=== PATIENT | male | born 1955 | race Caucasian/White ===

== ENCOUNTER → 2020-03-02 11:25 | Outpatient (BNVA) | payer BC, SELFPAY | PROVIDERS: Family Provider Internal Medicine; PCP Family Medicine; Visit Provider Family Medicine | DX: I10 Essential (primary) hypertension (principal); Z12.5 Encounter for screening for malignant neoplasm of prostate; M25.512 Pain in left shoulder; G89.29 Other chronic pain; R35.1 Nocturia | CPT/HCPCS: 80053; 80061; 82044; 85025; G0103 ==

== ENCOUNTER → 2020-06-03 14:03 | Outpatient (BNVA) | payer BC, SELFPAY | PROVIDERS: Family Provider Internal Medicine; PCP Family Medicine; Visit Provider Family Medicine | DX: E78.5 Hyperlipidemia, unspecified (principal) | CPT/HCPCS: 80053; 80061 ==

== ENCOUNTER 2020-08-05 07:14 | Outpatient (CLI) | payer BC, SELFPAY ==
[2020-08-05 08:05] VITALS: BMI 26.4
--- NOTE | 2020-08-05 08:06 | NMCV_ITS ---
NM vee perf SPECT r/s* [id number] Daniel Quinteros Age: 64 Gender: M : 1955 Exam Date: 08/05/2020 08:06 Ordering Phys: Anna Man Technologist: CHETNA Kaur Exam Location: [facility] Indications: SOB STRESS TEST Please see separate stress test report in [facility] for full findings IMAGE PROTOCOL Rest/Stress 1 Lexiscan Day Radiopharmaceutical Dose (mCi) Administration Site Administered by Rest: Tc-99m 10.4 IV CHETNA Kaur Sestamibi Stress:Tc-99m 32.9 IV Kym Sauceda, CHETNA Sestamibi Rest: 05-Aug-2020 60 Discovery 630 Stress: 05-Aug-2020 30 Discovery 630 0.4mg Lexiscan. Images obtained in supine and prone position. SPECT RESULTS Technical Quality: Excellent Raw Data Analysis: Normal Image Corrections: No attenuation or motion correction applied Summed Stress Score: 9 Summed Rest Score: 3 Summed Difference Score: 6 PERFUSION FINDINGS There is a large in size, severe in intensity reversible defect in basal to apical inferior wall. This is consistent with ischemia and RCA territory. FUNCTIONAL RESULTS (calculated via Gated SPECT) Stress Image LV EF (%): 73 Stress EDV (mL):99 TID: 1 Stress ESV (mL):27 FUNCTIONAL FINDINGS: LV systolic function is normal with EF of 73%. IMPRESSIONS 1. Abnormal myocardial perfusion imaging with large in size, severe in intensity reversible defect in inferior wall. This represents ischemia in the RCA territory. 2. Normal LV systolic function with EF of 73%. Juanito Suarez MD (Electronically Signed) Final Date: 07 August 2020 17:04 S
--- NOTE | 2020-08-05 08:06 | ECG_ITS ---
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 Interpretive Statements NAME OF STUDY: LEXISCAN SESTAMIBI STRESS TEST INDICATION: [Chest Pain, ] Procedure: At the baseline, the blood pressure was 137/75 mmHg, heart rate of 52 bpm. The electrocardiogram showed normal bradycardia rhythm with incomplete right bundle branch block with normal ST and T's. The Lexiscan was infused over a period of 20 seconds. A total of 0.4 mg of Lexiscan was infused. The stress phase was continued for a total of 5 minutes. Heart rate at the end of stress phase was 60 bpm, with blood pressure 129/80 mmHg. The EKG at the peak infusion revealed sinus rhythm with no significant ST T wave changes. Sestamibi was injected 20 seconds after the Lexiscan was infused. Blood pressure at the end of recovery phase was 121/72 mmHg, with a heart rate of 65 bpm. Conclusion: 1. Normal EKG response to Lexiscan infusion. 2. No Lexiscan induced chest pain or cardiac arrhythmia. 3. Normal blood pressure and heart rate response. 4. Sestamibi/sestamibi perfusion scan pending; see separate report. Electronically Signed On 08-08-2020 9:27:42 JIG AND FIXTURE REPAIRER by Juanito Suarez M.D. [email or web address]
[2020-08-05] MEDS: regadenoson 0.4 Mg/5 ml Syringe IVP (09:55)
[2020-08-05 09:57] VITALS: BP 130/76; PULSE 68
== END 2020-08-05 07:15 | disposition home or self-care (01) ==
LOC: CDL 07:17
PROVIDERS: PCP Family Medicine; Visit Provider Nurse Practitioner Family
DX: R07.9 Chest pain, unspecified (principal); R06.02 Shortness of breath
CPT/HCPCS: 78452; 93017; A9500; J2785

== ENCOUNTER → 2020-08-12 12:39 | Outpatient (BNVA) | payer BC, SELFPAY | PROVIDERS: PCP Family Medicine | DX: Z20.828 Contact with and (suspected) exposure to other viral communicable diseases (principal); Z01.812 Encounter for preprocedural laboratory examination | CPT/HCPCS: 87635 ==

== ENCOUNTER 2020-08-16 07:57 | Day surgery (SDC) | payer BC, SELFPAY ==
[2020-08-12 12:34] LABS: Basophils # 0.1 10^3/uL (0.0-0.1); Basophils % 0.9 %; Eosinophils # 0.2 10^3/uL (0.0-0.8); Eosinophils % 2.7 %; Hematocrit 47.9 % (42.0-52.0); Hemoglobin 16.4 g/dL (11.7-16.6); Lymphocytes # 1.8 10^3/uL (0.8-4.8); Lymphocytes % 27.5 %; Mean Corpuscular HGB Conc 34.2 g/dL (30.0-36.0); Mean Corpuscular Hemoglobin 33.6 pg (28.0-34.0); Mean Corpuscular Volume 98.2 fL (80-94); Mean Platelet Volume 8.8 fL (7.4-10.4); Monocytes # 0.7 10^3/uL (0.2-0.9); Monocytes % 11.6 %; Neutrophils # 3.64 10^3/uL (1.8-7.7); Nucleated Red Blood Cells % 0 %; Platelet Count 193 10^3/cmm (130-400); Red Blood Count 4.88 10^6/uL (4.1-5.3); Red Cell Distribution Width 11.7 % (12.1-15.1); White Blood Count 6.4 10^3/uL (4.0-10.0)
[2020-08-12 12:40] LABS: INR 0.91 (0.8-1.2)
[2020-08-12 12:52] LABS: Anion Gap 12.4 (5-19); Blood Urea Nitrogen 10 mg/dL (8-23); Calcium 9.8 mg/dL (8.5-10.5); Carbon Dioxide 30 mmol/L (22-29); Chloride 103 mmol/L (98-107); Glucose 120 mg/dL (65-115); Osmolality Calculated 292 mOsm/kg (285-295); Potassium 4.4 mmol/L (3.5-5.1); Sodium 141 mmol/L (136-145)
[2020-08-16] VITALS (27 sets, daily range): BP systolic 90–142; BP diastolic 68–91; PULSE 51–67; RESP 11–28; TEMP 36.8; O2SAT 93–99; BMI 28.5
--- NOTE | 2020-08-16 08:00 | XACV_ITS ---
Ht: 185 cm Wt: 98 kg BSA: 2.26 m2 Gender: Male : 1955 Exam Priority: Routine Procedure(s): Procedure Description: Diagnostic procedure Procedure Description: Left Heart Catheterization Procedure Description: Left ventriculography Procedure Description: Coronary Angiography Procedure Description: Pressure Wire Diagnostic Cath Status: Elective Diagnostic Findings * LAD has 0% stenosis. * CX has 0% stenosis. * Left Main Coronary Artery: Moderate 60% stenosis, LASHAWN: 3 flow, FFR performed: ratio is 0.68. * mRCA to dRCA: Severe 100% stenosis, LASHAWN: 0 flow. * dCIRC to CIRC AV collateralization. * Coronary angiography shows right dominance. PCI Status: Elective Conclusions 1. 1. Left main has 60% distal stenosis significant by IFR and FFR 0.8 and 0.68 respectively2. LAD has patent proximal stent without significant stenosis3. Left circumflex is moderate size and caliber vessel without significant stenosis4. RCA is chronically occluded with previously placed occluded mid to distal stents. Distal portion of the RCA fills retrogradely from left to right collaterals.. 2. Left ventricle ejection fraction is normal 65%, 3. no 4. significant 5. pullback gradient noted across the aortic valve.. 6. There is severe coronary artery disease with two vessel disease. 7. All higuera are normal. 8. Normal left ventricular systolic function. Ejection fraction of 65%. 9. Indication for left heart cath 10. : 11. Worsening of shortness of breath 12. chest pain 13. , abnormal stress test 14. in a patient with prior history of 15. LAD and RCA stent 16. and history of ACS . Recommendations * 1-Return to CSU for close monitoring and routine [facility] care 2-Continue to optimize medicine 3-Statin with LDL goal of 70 mg/dl, aspirin 81 mg p.o. daily for life long 4-CT surgery consults for CABG 5-Follow up with Dr. Thomas in four weeks and establish care with primary care physician . Diagnostic RX Recommendation: CABG Ventriculography Ejection Fraction: 65.0 % Pressures Phase:Rest AO : 86 / 62 ( 73 ) @ 3:54:00 AM 95 / 49 ( 68 ) @ 4:23:00 AM 88 / 42 ( 62 ) @ 4:23:00 AM LV : 110 / -3 / @ 4:21:00 AM 92 / -12 / @ 4:22:00 AM 95 / -11 / @ 4:23:00 AM Valves Phase:DefaultPhase AV : 0.0 @ 10:29:21 AM AV Mean Gradient: 0.0 @ 10:29:21 AM Clinical Evaluation EBL: 5mL-10mL Procedural Details Procedure Consent Obtained. Current Diagnosis : Chest Pain. Pre-Procedure Time Out. Identified patient by full name and date of as verbalized by the patient/guarantor. Does the consent match the physician's order: Yes. Accurate & Complete Informed Consent: Yes. Inpatient/Outpatient History & Physical on Chart: Yes. If H&P is completed, is and addenduem needed: Yes; If yes, is the addendum complete: N/A. Visualize and Verify Site with Patient/Guarantor: N/A. Relevant Radiology Images available: Yes. Pre-op teaching completed and patient verbalized understanding. The risks, benefits, and alternatives of sedation and/or procedure were discussed by physician. The patient agrees to continue. Procedure started. [facility] Clinical Fraility Score: 3: Managing Well. 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 Chest Pain Symptom Assessment: Typical Angina Symptoms. Correct patient, site and procedure confirmed by cath team. Current diagnosis: Chest Pain. PERRLA. Strong, equal hand pan operator bilaterally. Lungs clear x 5 lobes. IV Site on Arrival: 20 gauge in the right forearm. IV Fluids: 0.9% NaCl at KVO. 0 mL infused prior to analytical lab analyst. Pre Procedural Pulses: bilateral dorsalis pedis was 1+. Pre Procedural Pulses: bilateral posterior tibial was 2+. Pre Procedural Pulses: bilateral radial was 3+. Oxygen started at 2liters/min via nasal canula. right groin was prepped with chloroprep then draped in the usual sterile fashion. right radial was prepped with chloroprep then draped in the usual sterile fashion. Physician notified. Baseline sample Acquired. HR: 54 BPM. Patient's family unavailable. Dr. Thomas will call his after the procedure. Physician arrived. Physician scrubbed in. Immediate Pre-Procedure Time Out. Correct Patient: Yes; Correct Procedure: Yes; Correct Site: Yes; Correct Patient Position: Yes; Correct Supplies: Yes; Dried Flammable Prep: Yes; Blood Products Available: N/A;. Lidocaine 1% infiltrated to the right radial. Arterial access obtained. A 5 canadian TIG catheter in over wire. Multiple views taken of left coronary artery. Catheter redirected to the RCA. Multiple views taken of right coronary artery. Catheter out over the wire. 6 canadian XB 3.5 guide catheter was inserted over the wire. RT Lance (July) in to scrub in addition to RT Home. Albertina Khan RN, PRECISION ASSEMBLY INSPECTOR in to monitor for RT Lance (July). IVUS unavailable. An IFR value of 0.8 was obtained for a lesion located at LMCA. An FFR value of 0.64 was obtained for a lesion located at LMCA. Guide catheter out over the wire. A 5 canadian Angled Pig catheter in over wire. Medication's Wasted: Heparin = 4000 units. Medication's Wasted: Lidocaine 1% = 18 mL. Medication's Wasted: Nitro = 49.8 mg. Medication's Wasted: Adenosine = 62 mg. Total IV fluids: 100 mL. EDP Sample taken: LV 110/-4,8; HR: 56 BPM; SpO2: 98%. LV gram performed in GALVIN @ 10 mL/second for a total of 30 mL. EDP Sample taken: LV 92/-13,3; HR: 66 BPM; SpO2: 97%. Pullback taken: LV 95/-12,4; AO 95/49(68); Mean: 0mmHg, Peak to Peak: 0mmHg, SEP: 3sec/min; HR: 58 BPM; SpO2: 97%. Catheter removed over the exchange wire. Physician scrubbed out. TR band placed. Hemostasis obtained. Post Procedure: Pulses reassessed and unchanged. PERRLA. Strong, equal hand pan operator bilaterally. No VTE prophylaxis required. Post-op diagnosis: Multivessel CAD. Complications: None. Estimated blood loss: 5mL-10mL. A TR Band was successful obtaining hemostatsis at the Right Radial artery insertion site. Procedure completed. Patient transferred by bed to 1st floor. Vital chart was stopped. Access Site Site: Right Radial artery Sheath Size: 6 Fr Hemostasis Method: TR Band Hemostasis Success: Successful Procedure Medications Start: 9:26 AM Stop: 9:26 AM Medication: Fentanyl Amount: 50 mcg Route: I.V. Start: 9:26 AM Stop: 9:26 AM Medication: Versed Amount: 1 mg Start: 9:46 AM Stop: 9:46 AM Medication: Versed Amount: 1 mg Start: 9:46 AM Stop: 9:46 AM Medication: Nitrogylcerin Amount: 200 mcg Route: I.A. Start: 9:48 AM Stop: 9:48 AM Medication: Heparin Amount: 5000 units Route: I.V. Start: 10:01 AM Stop: 10:01 AM Medication: Heparin Amount: 2000 units Route: I.V. Start: 10:12 AM Stop: 10:12 AM Medication: Adenosine (Adenocard) Amount: 823 ml/hr Route: I.V. bolus Start: 10:14 AM Stop: 10:14 AM Medication: Fentanyl Amount: 25 mcg Route: I.V. Start: 10:17 AM Stop: 10:17 AM Medication: Fentanyl Amount: 25 mcg Route: I.V. I, the attending physician, have reviewed and verified all procedure medications. Yes, all medications given per verbal order History/Risk Factors Hypertension: Yes Dyslipidemia: Yes Peripheral Arterial Disease (PAD): Yes Myocardial Infarction (MO): No Obesity: No Renal Disease: No Prior Interventions PCI: Yes CABG: No Valve Surgery: No Date of PCI: 02/04/2014 Report Signatures Finalized by Zuleika Thomas MD on 08/19/2020 01:39 PM
[2020-08-16] MEDS: diphenhydrAMINE 50 mg Capsule PO (08:10)
--- NOTE | 2020-08-16 09:24 | P.HP_ITS ---
Providers/Chief Complaint Primary Care Provider: Lise Domínguez DO Chief Complaint: UNABLE TO SEE DX History of Present Illness Daniel Quinteros is a 64 year old male past medical history significant for coronary artery disease status post drug-eluting stent to RCA and LAD in 2013 on optimal medical management was struggling with worsening of shortness of breath palpitation and chest pain requiring nitroglycerin. Patient underwent stress test which showed reversibility suggestive of ischemia in the inferior wall. It is the reason patient is here today for coronary angiogram/left heart cath and PCI if needed. His other comorbidities are peripheral vascular disease hyperlipidemia hypertension. Patient has been explained all risk benefit and alternative for the procedure. Patient has been explained by myself the risk of bleeding arrhythmia stroke emergent bypass and worse case scenario . He understand all risk and benefits and would like to proceed with it. He is compliant with the medicine. LV systolic function is normal with EF of 73%. IMPRESSIONS 1. Abnormal myocardial perfusion imaging with large in size, severe in intensity reversible defect in inferior wall. This represents ischemia in the RCA territory. 2. Normal LV systolic function with EF of 73%. Juanito Suarez MD (Electronically Signed) Final Date: 07 August 2020 Medications/Allergies Home Medications Medication Instructions Recorded Confirmed Last Taken Type meloxicam 15 mg tablet 15 mg PO DAILY #30 tab 03/02/20 08/16/20 08/16/20 07:00 Rx cholecalciferol (vitamin D3) 25 25 mcg PO DAILY 04/12/20 08/16/20 08/15/20 08:00 History mcg (1,000 unit) capsule cyanocobalamin (vitamin B-12) 1,000 mcg PO DAILY 04/12/20 08/16/20 08/15/20 08:00 History 1,000 mcg capsule omega-3 fatty acids 1,000 mg 1,000 mg PO DAILY 04/12/20 08/16/20 08/15/20 08:00 History capsule thiamine HCl (vitamin B1) 100 mg 100 mg PO DAILY 04/12/20 08/16/20 08/15/20 08:00 History tablet gabapentin 800 mg tablet See Rx Instructions PO TID 30 Days 06/03/20 08/16/20 08/16/20 07:00 Rx #105 tab metoprolol tartrate 25 mg tablet 12.5 mg PO BID #60 tab 06/03/20 08/16/20 08/16/20 07:00 Rx simvastatin 40 mg tablet 40 mg PO DAILY #90 tab 07/06/20 08/16/20 08/15/20 20:00 Rx nitroglycerin 0.4 mg sublingual 0.4 mg SUBLINGUAL Q5M PRN #14 tab 08/12/20 08/15/20 Unknown Rx tablet amlodipine 5 mg PO QPM 08/15/20 08/16/20 08/15/20 20:00 History pantoprazole [Protonix] 40 mg PO EVERY OTHER DAY 08/15/20 08/16/20 08/15/20 20: 00 History trazodone 75 mg PO QPM 08/15/20 08/16/20 08/15/20 20:00 History Allergies Allergy/AdvReac Type Severity Reaction Status Date / Time hydrocodone AdvReac Mild unknown Verified 06/13/20 12:43 oxycodone [From Percocet] AdvReac Mild unknown Verified 06/13/20 12:43 PFSH Acute PFSH: Medical History (Updated 08/16/20 @ 09:29 by Zuleika Thomas MD) Benign essential HTN Coronary artery disease involving [place] coronary artery Dyslipidemia Paroxysmal tachycardia PVD (peripheral vascular disease) Surgical History History of back surgery History of facial fracture repair History of hand surgery History of left hip replacement Presence of stent in LAD coronary artery 02/04/2014 S/P right coronary artery (RCA) stent placement 02/04/2014 Family History Other CAD (coronary artery disease) Lung disease Social History Smoking and tobacco status: current every day smoker smokeless tobacco Alcohol intake: never Vitals/I&O/Wt Last Vital Signs Temp 98.3 F 08/16/20 08:23 Pulse 67 08/16/20 08:23 Resp 18 08/16/20 08:23 BP 116/78 08/16/20 08:23 Pulse Ox 96 08/16/20 08:23 Weight last 48 hrs Weight 216 lb Physical Exam Narrative: EXAM NARRATIVE: GENERAL: Patient is alert, awake and oriented x3. NECK: No jugular vein distension. HEENT: No cyanosis. No icterus. No pallor. HEART: Regular S1 and S2. No murmur, rub or gallop. LUNGS: Clear to auscultate bilaterally. ABDOMEN: Soft, nontender and nondistended. Positive bowel sounds. No guarding, rebound or tenderness. CENTRAL NERVOUS SYSTEM: Grossly nonfocal. EXTREMITIES: Lower extremities without edema bilaterally. Data : 08/12/20 12:22 08/12/20 12:22 A&P Assessment and plan (1) Abnormal stress test: Worsening of chest pain shortness of breath in a patient with prior history of stents in RCA and LAD despite of optimization of medicine and regular use of nitroglycerin suggestive of angina. Patient underwent stress test which turns out to be abnormal in the inferior region. It is the reason we will proceed with coronary angiogram and PCI if needed. As above patient has been consented for all risk benefit and alternative for the procedure. He would like to proceed with it. Status: Acute (2) PVD (peripheral vascular disease): Currently denies any claudication continue medical management continue walking exercises continue lifestyle modification Status: Acute (3) Benign essential HTN: Well-controlled in general. Continue current regimen Status: Acute (4) Coronary artery disease involving [place] coronary artery: As above patient has history of stents in RCA and LAD. Status: Acute Qualifiers: [place] vs. transplanted heart: [place] heart Associated angina: without angina Qualified Code(s): I25.10 - Atherosclerotic heart disease of [place] coronary artery without angina pectoris Attestations Medical Necessity Statement*: Require continuation hospitalization for above defined care Coding Level of Care Code New Pt Acute [facility] for [facility] Fwd Patient Type New History Detailed Exam Detailed Medical Decision Making Moderate Complexity Diagnoses Abnormal stress test R94.39 PVD (peripheral vascular disease) I73.9 Benign essential HTN I10 Coronary artery disease involving [place] coronary artery I25.10 [place] vs. transplanted heart: [place] heart Associated angina: without angina
--- NOTE | 2020-08-16 09:33 | W.PM.OPSUD ---
Surgery/Procedure H&P Update DATE OF PROCEDURE: August 16, 2020 DATE H&P PERFORMED: 08/16/20 H&P UPDATE INFORMATION: I have examined patient prior to procedure, No changes to prior documentation and Changes to prior documentation as noted here PREOP DIAGNOSIS: Positive stress test, angina, history of coronary disease and prior stents PLANNED PROCEDURE: Operation Date: 08/16/20 08:55 Proposed Procedures p Cardiac Catheterization 01412/R94.39(Left) - Zuleika Thomas MD PATIENT REASSESSED PRIOR TO SEDATION, WITH NO CHANGE NOTED: Yes PHYSICAL EXAM: alert, oriented x 3 and clear to auscultation bilaterally AIRWAY EVAL/ANESTHESIA PLAN: ASA II, Risks, benefits & alternatives of sedation and/or procedure discussed and Patient agrees to continue as planned
--- NOTE | 2020-08-16 10:45 | PC.NURSE ---
Patient to CSU from laborer general at 1038. 2 nurse verification of cath site. TR band intact, site asymptomatic. Patient denies any CP or SOB at this time. VSS. Nurse to continue to monitor.
[2020-08-16] MEDS: sodium chloride 0.9% 1,000 ML 100 ML IV (11:05)
--- NOTE | 2020-08-16 12:16 | USCV_ITS ---
Daniel Quinteros Age: 64 Gender: M : 1955 Exam Date: 08/16/2020 11:01 Ordering Phys: Zuleika Thomas MD ([email or web address]) Technologist: Ledy Moran Exam Location: [facility] [place] Indication: CAD BP: 127 / 80 HR: 52 Rhythm: Sinus Technical Quality: Technically difficult study MEASUREMENTS (Male / Female) Normal Values 2D ECHO LV Diastolic Diameter PLAX 3.0 cm 4.2 - 5.9 / 3.9 - 5.3 cm LV Systolic Diameter PLAX 2.3 cm LV Chamber Size 3.5 cm IVS Diastolic Thickness 1.4 cm 0.6 - 1.0 / 0.6 - 0.9 cm IVS Systolic Thickness 1.7 cm LVPW Diastolic Thickness 1.6 cm 0.6 - 1.0 / 0.6 - 0.9 cm LVPW Systolic Thickness 1.8 cm RV Chamber Size 3.9 cm LVOT Diameter 2.0 cm LV Ejection Fraction 2D Teich 49.2 % LA Diameter 3.4 cm LA Width 3.1 cm LA Height 3.8 cm RA Width 3.6 cm RA Height 3.7 cm Aorta at Sinotubular Diameter 2.7 cm M-MODE LV Diastolic Diameter MM 3.3 cm 4.2 - 5.9 / 3.9 - 5.3 cm LV Systolic Diameter MM 1.4 cm LV Ejection Fraction MM Teich 89.0 % IVS Diastolic Thickness MM 1.2 cm 0.6 - 1.0 / 0.6 - 0.9 cm IVS Systolic Thickness MM 1.2 cm LVPW Diastolic Thickness MM 1.1 cm 0.6 - 1.0 / 0.6 - 0.9 cm LVPW Systolic Thickness MM 1.3 cm Aortic Annulus Diameter 3.9 cm LA Ao Ratio MM 1.0 MV E Point Septal Separation 1.0 cm DOPPLER AV Peak Velocity 134.0 cm/s LVOT Peak Velocity 88.0 cm/s AV Area Cont Eq vti 2.4 cm squared AV Area Cont Eq pk 2.1 cm squared MV Area PHT 3.7 cm squared Mitral E to A Ratio 0.8 MV E' Velocity 34.0 cm/s Mitral E to MV E' Ratio 5.1 Mitral E to LV E' Lateral Ratio 4.7 Mitral E to LV E' Septal Ratio 5.6 TR Peak Velocity 197.3 cm/s TR Peak Gradient 15.6 mmHg TV Peak E Velocity 46.0 cm/s Right Atrial Pressure 3.0 mmHg Pulmonary Artery Systolic Pressu 18.6 mmHg PV Peak Velocity 59.0 cm/s RV Acceleration Time 0.1 s RV Ejection Time 0.4 s RV AcT/ET 0.3 FINDINGS Left Ventricle Normal left ventricular cavity size. Normal left ventricular systolic function. Hyperdynamic left ventricular systolic function. Left ventricular ejection fraction is estimated at 88 %. No regional wall motion abnormalities. Grade I/IV diastolic dysfunction (abnormal relaxation filling pattern), normal to mildly elevated filling pressures. Right Ventricle The right ventricle is normal in size and function. Right Atrium The right atrium is normal in size. Left Atrium The left atrium is normal in size. Mitral Valve Structurally normal mitral valve without significant stenosis or prolapse. There is no mitral regurgitation. Aortic Valve Structurally normal aortic valve without significant sclerosis or stenosis. There is no aortic regurgitation. Tricuspid Valve Structurally normal tricuspid valve without significant stenosis or regurgitation. Pulmonary artery systolic pressure is normal. Pulmonic Valve Structurally normal pulmonic valve without significant stenosis. There is no pulmonic regurgitation. Pericardium Normal pericardium without effusion. Aorta Normal ascending aorta dimension. CONCLUSIONS 1-Normal left ventricular cavity size. Normal left ventricular systolic function. Hyperdynamic left ventricular systolic function. Left ventricular ejection fraction is estimated at 88 %. No regional wall motion abnormalities. Grade I/IV diastolic dysfunction (abnormal relaxation filling pattern), normal to mildly elevated filling pressures. 2-There is no pericardial effusion. 3-No significant valve abnormalities. 4-Right atrial pressure is around 5 mm of mercury. 5-No significant change since the prior echocardiogram study of 04/28/2019. Zuleika Thomas MD (Electronically Signed) Final Date: 16 August 2020 19:08 S
--- NOTE | 2020-08-16 15:55 | PC.NURSE ---
TR band off at 1515. Site asymptomatic. No hematoma noted. dressing applied, CDI. Nurse to continue to monitor.
--- NOTE | 2020-08-16 16:50 | PC.NURSE ---
Discharge instructions given per the physician's orders. Patient verbalized understanding of teaching and post angiogram home care instructions and did not have any further questions. IV has been removed. Patient dressed self. No needs identified at this time. Nurse to continue to monitor.
== END 2020-08-16 17:05 | disposition home or self-care (01) ==
LOC: CCL 08:01 → CSU 10:38
PROVIDERS: PCP Family Medicine; Visit Provider Internal Medicine Cardiovascular Disease
DX: R94.39 Abnormal result of other cardiovascular function study (principal); I73.9 Peripheral vascular disease, unspecified; I10 Essential (primary) hypertension; I25.10 Atherosclerotic heart disease of native coronary artery without angina pectoris; E78.5 Hyperlipidemia, unspecified; F17.290 Nicotine dependence, other tobacco product, uncomplicated
CPT/HCPCS: 12345; 36415; 80048; 85025; 85610; 93306; 93452; 93458; 93571; C1769; C1887; C1894; J0153; J1644; J2250; J3010; J3490; J7030; Q0163; Q9967

== ENCOUNTER → 2020-08-31 11:30 | Outpatient (BNVA) | payer BC, SELFPAY | PROVIDERS: PCP Family Medicine; Visit Provider Family Medicine | DX: E78.5 Hyperlipidemia, unspecified (principal); I10 Essential (primary) hypertension; F17.229 Nicotine dependence, chewing tobacco, with unspecified nicotine-induced disorders | CPT/HCPCS: 80053; 80061 ==

== ENCOUNTER 2021-01-11 14:23 | Outpatient (CLI) | payer OTHER, SELFPAY ==
--- NOTE | 2021-01-11 14:30 | XR_ITS ---
WS: [id number] Chest 2 views, 01/11/2021 Clinical Data: Z95.1 - Presence of aortocoronary bypass graft Comparison: PA and lateral chest, 02/25/2019. Findings: No nodules, masses or effusions are seen. The heart is normal. The pulmonary vascularity is not increased. No pneumonia or pneumothorax is seen. The aortic arch and descending aorta show tortu osity. There is blunting of the left costophrenic angle probably from pleural reaction. Midline phan otomy sutures are present. XR/XR chest 2V* [id number] Impression: Atherosclerosis.
== END 2021-01-11 14:24 | disposition home or self-care (01) ==
PROVIDERS: PCP Family Medicine; Visit Provider Internal Medicine Cardiovascular Disease
DX: Z95.1 Presence of aortocoronary bypass graft (principal); I70.90 Unspecified atherosclerosis
CPT/HCPCS: 71046

== ENCOUNTER → 2021-02-16 09:22 | Outpatient (BNVA) | payer OTHER, SELFPAY | PROVIDERS: PCP Family Medicine; Visit Provider Family Medicine | DX: E78.5 Hyperlipidemia, unspecified (principal); M89.49 Other hypertrophic osteoarthropathy, multiple sites; F17.229 Nicotine dependence, chewing tobacco, with unspecified nicotine-induced disorders | CPT/HCPCS: 80053; 80061 ==

== ENCOUNTER 2021-06-09 15:25 | Emergency (ER) | payer MEDICARE, SELFPAY ==
[2021-06-09 15:39] VITALS: BP 123/77; PULSE 68; RESP 16; TEMP 36.8; O2SAT 97
--- NOTE | 2021-06-09 16:02 | XRR_ITS ---
PROCEDURE INFORMATION: Exam: XR Chest Exam date and time: 06/09/2021 4:02 PM Age: 65 years old Clinical indication: Cough and dyspnea; Additional info: Dyspnea/cough TECHNIQUE: Imaging protocol: XR of the chest. Views: 1 view. COMPARISON: CR XR chest 2V* [id number] 01/11/2021 2:36 PM FINDINGS: Lungs: Lungs are clear bilaterally. Pleural spaces: No pleural effusion. No pneumothorax. Heart/Mediastinum: Stable mild enlargement of the cardiac silhouette. Mediastinal contours are unremarkable. Vasculature: Stable vascular calcifications in the aorta. Bones/joints: Poststernotomy changes in the chest. Degenerative changes in the spine and shoulders. Osseous findings are stable. XR/XR chest 1V portable [id number] IMPRESSION: 1. No acute cardiopulmonary process. 2. Incidental/nonacute findings are listed in the report.
--- NOTE | 2021-06-09 16:02 | CTR_ITS ---
PROCEDURE INFORMATION: Exam: CT Head Without Contrast Exam date and time: 06/09/2021 4:02 PM Age: 65 years old Clinical indication: Altered mental status/memory loss; Confusion or disorientation; Prior surgery; Surgery date: 6+ months; Surgery type: Craniotomy; Patient HX: AMS and memory loss x 2 days TECHNIQUE: Imaging protocol: Computed tomography of the head without contrast. Sagittal and coronal reformatted images were created and reviewed. Radiation optimization: All CT scans at this facility use at least one of these dose optimization techniques: automated exposure control; mA and/or kV adjustment per patient size (includes targeted exams where dose is matched to clinical indication); or iterative reconstruction. COMPARISON: CT head wo con* [id number] 09/22/2019 4:19 PM RADIATION DOSE METRICS: Total DLP (mGy-cm): 898.06 FINDINGS: Brain: No acute intracranial hemorrhage. No acute infarct. No intra-axial or extra-axial masses. Mann-white matter differentiation is preserved. No cerebral edema. No extra-axial fluid collections. No midline shift. No evidence for Chiari 1 malformation. Stable area of encephalomalacia suggesting postsurgical change in the left parieto-occipital region. Cerebral ventricles: No hydrocephalus. Paranasal sinuses: Visualized paranasal sinuses are clear. Mastoid air cells: Mastoid air cells are clear bilaterally. Orbital cavity: No acute abnormality in the visualized orbits. Vasculature: Atherosclerotic changes in the visualized arteries. Bones/joints: Mild right nasal septal deviation. Post craniotomy changes in the left parietal/occipital bones. Soft tissues: No acute abnormality of the extracranial soft tissues. CT/CT head wo con* [id number] IMPRESSION: 1. No acute abnormality of the brain. 2. Stable area of encephalomalacia suggesting postsurgical change in the left parieto-occipital region. 3. Post craniotomy changes in the left parietal/occipital bones. 4. Incidental/nonacute findings are listed in the report. Radiation Dose CTDIVOL = (mGy): DLP = 898.06 (mGy-cm)
--- NOTE | 2021-06-09 16:02 | ECG_ITS ---
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 Measurements Intervals [place] Rate: 59 P: 4 NJ: 174 QRS: -23 QRSD: 102 T: -4 QT: 400 QTc: 397 Interpretive Statements SINUS BRADYCARDIA POSSIBLE RIGHT VENTRICULAR CONDUCTION DELAY [RSR (QR) IN V1/V2] INFERIOR MYOCARDIAL INFARCTION , OF INDETERMINATE AGE [40+ ms Q WAVE AND/OR ST/T ABNORMALITY IN II/aVF] Compared to ECG 12/26/2018 20:17:12 Sinus tachycardia no longer present Myocardial infarct finding still present Electronically Signed On 06-09-2021 20:32:31 CDT by Juanito Suarez M.D. [id number]
[2021-06-09 16:23] LABS: SARS Covid-2 Antigen Negative (Negative)
[2021-06-09 16:28] LABS: ABG PH Result 7.45 (7.35-7.45); Alveolar-Arterial Oxygen Gradi 2.9 mmHg (5-10); Base Excess ABG 1.9 mmol/L (-2.0-2.0); Blood Gas Allen Test Pos; Blood Gas Operator Identificat ED; Blood Gas Sample Site Radial, left; Blood Gas Sample Type Arterial; Carboxyhemoglobin 1.2 %THgb (0.4-20.1); HCO3 ABG 25.7 mmol/L (22-26); HGB O2 Sat 95.7 % (95-100); Ionized Calcium Level - ABG 1.2 mmol/L (1.1-1.4); Methemoglobin 0.6 % (0.4-1.5); Oxygen Device ROOM AIR; Oxygen Saturation ABG 97.4; PO2 ABG 80.9 mmHg (80.0-100.0); Potassium Level - ABG 3.7 mmol/L (3.5-5.0); Total Hemoglobin 16.3 g/dL (14-18)
[2021-06-09 16:47] LABS: Basophils % 0.4 %; Eosinophils % 0.1 %; Hemoglobin 16.3 g/dL (11.7-16.6); Lymphocytes # 1.6 10^3/uL (0.8-4.8); Lymphocytes % 20.4 %; Mean Corpuscular HGB Conc 35.4 g/dL (30.0-36.0); Mean Corpuscular Hemoglobin 33.1 pg (28.0-34.0); Mean Corpuscular Volume 93.5 fl (80-94); Mean Platelet Volume 8.8 fL (7.4-10.4); Monocytes % 12.9 %; Neutrophils # 5.02 10^3/uL (1.8-7.7); Neutrophils % 65.9 %; Nucleated Red Blood Cells % 0 %; Platelet Count 172 10^3/cmm (130-400); Red Blood Count 4.92 10^6/uL (4.1-5.3); Red Cell Distribution Width 12.4 % (12.1-15.1); White Blood Count 7.6 10^3/uL (4.0-10.0)
--- NOTE | 2021-06-09 16:52 | ED_ITS ---
HPI - General Adult General: Chief complaint: General Medical Stated complaint: Low O2, sent from [facility] Clinic Time Seen by Provider: 06/09/21 15:33 History of Present Illness: HPI narrative: 65-year-old male presents emergency room from urgent care clinic. At the urgent care clinic they report his oxygen sats were low however he has been normal years old time. Patient denies fever cough or shortness of breath he had swabbed him for Covid antigen but they had to had them bring it here they did not run in there. He is confused and disoriented states he had some cold chills he states he does not remember anything from 2 days ago. He denies any chest pain no head trauma. Denies dysuria urgency or frequency abdominal pain. No injury. He is not on any anticoagulants. Is not had any vomiting or diarrhea. Essentially besides being mildly confused he has no other symptoms. He does not demonstrate any hypoxia since arriving here. Associated symptoms: Reports confusion; Deny chest pain, dyspnea, malaise, nausea, rash or vomiting Review of Systems Const: Denies: fever(s), chills, body aches, change in appetite, fatigue or malaise ENMT: Denies: throat pain, ear or mastoid pain, nasal discharge or nasal catalina estion Card: Denies: chest pain, edema, dyspnea on exertion or orthopnea Resp: Denies: dyspnea, productive cough or non-productive cough GI: Denies: abdominal pain, nausea, vomiting, hematemesis, coffee ground emesis, diarrhea, constipation, bloating, hematochezia or melena : Denies: flank pain, dysuria, urinary frequency or urinary urgency Skin/Breast: Denies: rash or pruritus Neuro: Reports: confusion; Denies: numbness in extremities, weakness in extremities, sensory changes, lack of coordination, difficulty walking, frequent falls, dizziness, vertigo, behavioral changes, Slurred speech present, difficulty communicating thoughts, seizure-like activity or involuntary movements [facility] ED PFSH: Medical History Benign essential HTN Coronary artery disease involving ute coronary artery Dyslipidemia Paroxysmal tachycardia PVD (peripheral vascular disease) Surgical History History of back surgery History of facial fracture repair History of hand surgery History of left hip replacement Presence of stent in LAD coronary artery 02/04/2014 S/P right coronary artery (RCA) stent placement 02/04/2014 S/P triple vessel bypass Status post aorto-coronary artery bypass graft Family History Other CAD (coronary artery disease) Lung disease Social History Smoking and tobacco status: current every day smoker smokeless tobacco Alcohol intake: never Physical Exam Const: COMMON NORMALS: no acute distress GENERAL APPEARANCE: cooperative and comfortable ORIENTATION/CONSCIOUSNESS: Yes awake, Yes oriented to person, Yes oriented to place and Yes oriented to time HENMT: COMMON NORMALS: normocephalic, atraumatic, hearing grossly normal bilaterally, external ears normal, EAC's normal, TM's normal bilaterally, Normal nasal mucous membranes and turbinates present, moist oral mucous membranes and oropharynx normal HEAD & SCALP: normocephalic and atraumatic NOSE: Normal nasal mucous membranes and turbinates present EXTERNAL EAR: Yes external ears normal EXTERNAL AUDITORY CANAL: EAC's normal TYMPANIC MEMBRANE: TM's normal bilaterally Neck/C-Spine: COMMON NORMALS: full ROM and no meningeal signs Resp: COMMON NORMALS: normal respiratory effort, No retractions, No use of accessory muscles and clear to auscultation bilaterally AUSCULTATION: clear to auscultation bilaterally Cardio: COMMON NORMALS: regular rate, regular rhythm and No murmurs present (Cardio) RATE: regular rate RHYTHM: regular rhythm GI: COMMON NORMALS: Soft to palpation and No hepatosplenomegaly present AUSCULTATION: Yes normoactive bowel sounds PALPATION: Yes Soft to palpation, No Tenderness to palpation present (GI), No Guarding due to palpation present (GI) and Yes No hepatosplenomegaly present Extremity: COMMON NORMALS: normal to inspection, capillary refill normal, no clubbing, cyanosis or edema, no calf tenderness and no pedal edema Neuro: SENSORIUM/ORIENTATION: Yes oriented to person, Yes oriented to place and Yes oriented to time MENINGEAL SIGNS: Yes no meningeal signs Skin: COMMON NORMALS: no rashes or lesions noted GENERAL SKIN EXAM: no rashes or lesions noted Course Vital Signs: Vital signs: Vital Signs Temperature 98.3 F 06/09/21 15:39 Pulse Rate 76 06/09/21 18:34 Respiratory Rate 15 06/09/21 18:34 Blood Pressure 157/100 06/09/21 18:34 Pulse Oximetry 92 06/09/21 18:34 MDM - General Adult MDM Narrative: Medical decision making narrative: Labs and imaging reviewed as on the chart. 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 He is confused but he is completely aware of it. He is forgetful at times. He cannot recall particular words he has no other focal neurologic deficits no nausea or vomiting this is been going on for some time. He reports some cold chills. Reviewed his labs no sign of infection at this time. He had first gone to primary care clinic they had swabbed him for Covid which was completed negative he has no Covid symptoms at this time. I do think he will require further work-up with including an MRI of the head. He should follow-up with neurology offered appointment with our neurology department he declined feels set it up through his primary care doctor. He can return at any time. Encouraged him to make sure he followed up I do think this warrants further evaluation. Lab Data: Labs: Lab Results 06/09/21 06/09/21 06/09/21 Range/Units 15:05 16:18 16:39 WBC 7.6 (4.0-10.0) 10^3/ uL RBC 4.92 (4.1-5.3) 10^6/u L Hgb 16.3 (11.7-16.6) g/dL Hct 46.0 (42.0-52.0) % MCV 93.5 (80-94) fl MCH 33.1 (28.0-34.0) pg MCHC 35.4 (30.0-36.0) g/dL RDW 12.4 (12.1-15.1) % Plt Count 172 (130-400) 10^3/c mm MPV 8.8 (7.4-10.4) fL Neut % (Auto) 65.9 % Lymph % (Auto) 20.4 % Mayes % (Auto) 12.9 % Eos % (Auto) 0.1 % Baso % (Auto) 0.4 % Neut # (Auto) 5.02 (1.8-7.7) 10^3/u L Lymph # (Auto) 1.6 (0.8-4.8) 10^3/u L Mayes # (Auto) 1.0 H (0.2-0.9) 10^3/u L Eos # (Auto) 0.0 (0.0-0.8) 10^3/u L Baso # (Auto) 0.0 (0.0-0.1) 10^3/u L Nucleated RBC % (a uto) 0 % Nucleated RBCs # 0.0 /100WBC Specimen Type Arterial Sample Site Radial, left ABG pH 7.45 (7.35-7.45) ABG pCO2 37.0 (35-45) mmHg ABG pO2 80.9 (80.0-100.0) mmH g ABG HCO3 25.7 (22-26) mmol/L ABG O2 Saturation 97.4 ABG Base Excess 1.9 (-2.0-2.0) mmol/ L Martínez Test Pos A-a O2 Gradient 2.9 L (5-10) mmHg Hematocrit 50.0 (42-52) % Hgb O2 Saturation 95.7 (95-100) % Carboxyhemoglobin 1.2 (0.4-20.1) %THgb Methemoglobin 0.6 (0.4-1.5) % Total Hemoglobin 16.3 (14-18) g/dL Sodium 139.0 (131-143) mmol/L Potassium 3.7 (3.5-5.0) mmol/L Glucose 98.0 (70-115) mg/dL Ionized Calcium 1.2 (1.1-1.4) mmol/L O2 Delivery Device Room air FiO2 21.0 % Dubbing Machine Operator ID Ed Chloride (98-107) mmol/L Carbon Dioxide (22-29) mmol/L Anion Gap (5-19) BUN (8-23) mg/dL Creatinine (0.7-1.2) mg/dL GFR Calculation (90-130) mL/min Calculated Osmolal ity (285-295) mOsm/k g Calcium (8.5-10.5) mg/dL Magnesium (1.7-2.3) mg/dL Total Bilirubin (0.15-1.2) mg/dL AST (0-40) U/L ALT (0-41) U/L Alkaline Phosphata se (40-130) IU/L Creatine Kinase (39-308) U/L Total Protein (6.6-8.7) g/dL Albumin (3.5-5.2) g/dL Globulin (1.3-4.6) g/dL Lipase (13-60) U/L Urine Color (Yellow) Urine Appearance (CLEAR) Urine pH (5-7) Ur Specific Gravit y (1.005-1.030) Urine Protein (Negative) Urine Glucose (UA) (Normal) Urine Ketones (Negative) Urine Blood (Negative) Urine Nitrate (Negative) Urine Bilirubin (Negative) Urine Urobilinogen (Negative) mg/dL Ur Leukocyte Meme ase (Negative) Urine RBC Urine WBC (0-5) /hpf Ur Squamous Epith Cells (0-5) /hpf Amorphous Sediment Urine Bacteria (NONE) /hpf Urine Opiates Scre en (Negative) ng/mL Ur Barbiturates Sc reen (Negative) ng/mL Ur Phencyclidine S crn (Negative) ng/mL Ur Amphetamines Sc reen (Negative) ng/mL U Benzodiazepines Scrn (Negative) ng/mL Urine Cocaine Scre en (Negative) ng/mL U Marijuana (THC) Screen (Negative) ng/mL Ethyl Alcohol (0-10) mg/dL SARS-CoV-2 Ag (Rap id) Negative (Negative) 06/09/21 06/09/21 06/09/21 Range/Units 16:39 16:39 16:55 WBC (4.0-10.0) 10^3/ uL RBC (4.1-5.3) 10^6/u L Hgb (11.7-16.6) g/dL Hct (42.0-52.0) % MCV (80-94) fl MCH (28.0-34.0) pg MCHC (30.0-36.0) g/dL RDW (12.1-15.1) % Plt Count (130-400) 10^3/c mm MPV (7.4-10.4) fL Neut % (Auto) % Lymph % (Auto) % Mayes % (Auto) % Eos % (Auto) % Baso % (Auto) % Neut # (Auto) (1.8-7.7) 10^3/u L Lymph # (Auto) (0.8-4.8) 10^3/u L Mayes # (Auto) (0.2-0.9) 10^3/u L Eos # (Auto) (0.0-0.8) 10^3/u L Baso # (Auto) (0.0-0.1) 10^3/u L Nucleated RBC % (a uto) % Nucleated RBCs # /100WBC Specimen Type Sample Site ABG pH (7.35-7.45) ABG pCO2 (35-45) mmHg ABG pO2 (80.0-100.0) mmH g ABG HCO3 (22-26) mmol/L ABG O2 Saturation ABG Base Excess (-2.0-2.0) mmol/ L Martínez Test A-a O2 Gradient (5-10) mmHg Hematocrit (42-52) % Hgb O2 Saturation (95-100) % Carboxyhemoglobin (0.4-20.1) %THgb Methemoglobin (0.4-1.5) % Total Hemoglobin (14-18) g/dL Sodium 136 (131-143) mmol/L Potassium 3.8 (3.5-5.0) mmol/L Glucose 88 (70-115) mg/dL Ionized Calcium (1.1-1.4) mmol/L O2 Delivery Device FiO2 % Dubbing Machine Operator ID Chloride 100 (98-107) mmol/L Carbon Dioxide 25 (22-29) mmol/L Anion Gap 14.8 (5-19) BUN 22 (8-23) mg/dL Creatinine 0.6 L (0.7-1.2) mg/dL GFR Calculation 136.1 H (90-130) mL/min Calculated Osmolal ity 285 (285-295) mOsm/k g Calcium 9.0 (8.5-10.5) mg/dL Magnesium 2.1 (1.7-2.3) mg/dL Total Bilirubin 0.6 (0.15-1.2) mg/dL AST 21 (0-40) U/L ALT 20 (0-41) U/L Alkaline Phosphata se 82 (40-130) IU/L Creatine Kinase 93 (39-308) U/L Total Protein 7.7 (6.6-8.7) g/dL Albumin 4.4 (3.5-5.2) g/dL Globulin 3.3 (1.3-4.6) g/dL Lipase 46 (13-60) U/L Urine Color Dark yellow (Yellow) Urine Appearance Clear (CLEAR) Urine pH 5 (5-7) Ur Specific Gravit y 1.020 (1.005-1.030) Urine Protein Neg (Negative) Urine Glucose (UA) Norm (Normal) Urine Ketones 1+ H (Negative) Urine Blood Neg (Negative) Urine Nitrate Negative (Negative) Urine Bilirubin 1+ H (Negative) Urine Urobilinogen 1 H (Negative) mg/dL Ur Leukocyte Meme ase Negative (Negative) Urine RBC Not Reportable Urine WBC 5-10 H (0-5) /hpf Ur Squamous Epith Cells 0-4 H (0-5) /hpf Amorphous Sediment Not Reportable Urine Bacteria Trace (NONE) /hpf Urine Opiates Scre en (Negative) ng/mL Ur Barbiturates Sc reen (Negative) ng/mL Ur Phencyclidine S crn (Negative) ng/mL Ur Amphetamines Sc reen (Negative) ng/mL U Benzodiazepines Scrn (Negative) ng/mL Urine Cocaine Scre en (Negative) ng/mL U Marijuana (THC) Screen (Negative) ng/mL Ethyl Alcohol < 10 (0-10) mg/dL SARS-CoV-2 Ag (Rap id) (Negative) 06/09/21 Range/Units 16:55 WBC (4.0-10.0) 10^3/ uL RBC (4.1-5.3) 10^6/u L Hgb (11.7-16.6) g/dL Hct (42.0-52.0) % MCV (80-94) fl MCH (28.0-34.0) pg MCHC (30.0-36.0) g/dL RDW (12.1-15.1) % Plt Count (130-400) 10^3/c mm MPV (7.4-10.4) fL Neut % (Auto) % Lymph % (Auto) % Mayes % (Auto) % Eos % (Auto) % Baso % (Auto) % Neut # (Auto) (1.8-7.7) 10^3/u L Lymph # (Auto) (0.8-4.8) 10^3/u L Mayes # (Auto) (0.2-0.9) 10^3/u L Eos # (Auto) (0.0-0.8) 10^3/u L Baso # (Auto) (0.0-0.1) 10^3/u L Nucleated RBC % (a uto) % Nucleated RBCs # /100WBC Specimen Type Sample Site ABG pH (7.35-7.45) ABG pCO2 (35-45) mmHg ABG pO2 (80.0-100.0) mmH g ABG HCO3 (22-26) mmol/L ABG O2 Saturation ABG Base Excess (-2.0-2.0) mmol/ L Martínez Test A-a O2 Gradient (5-10) mmHg Hematocrit (42-52) % Hgb O2 Saturation (95-100) % Carboxyhemoglobin (0.4-20.1) %THgb Methemoglobin (0.4-1.5) % Total Hemoglobin (14-18) g/dL Sodium (131-143) mmol/L Potassium (3.5-5.0) mmol/L Glucose (70-115) mg/dL Ionized Calcium (1.1-1.4) mmol/L O2 Delivery Device FiO2 % Dubbing Machine Operator ID Chloride (98-107) mmol/L Carbon Dioxide (22-29) mmol/L Anion Gap (5-19) BUN (8-23) mg/dL Creatinine (0.7-1.2) mg/dL GFR Calculation (90-130) mL/min Calculated Osmolal ity (285-295) mOsm/k g Calcium (8.5-10.5) mg/dL Magnesium (1.7-2.3) mg/dL Total Bilirubin (0.15-1.2) mg/dL AST (0-40) U/L ALT (0-41) U/L Alkaline Phosphata se (40-130) IU/L Creatine Kinase (39-308) U/L Total Protein (6.6-8.7) g/dL Albumin (3.5-5.2) g/dL Globulin (1.3-4.6) g/dL Lipase (13-60) U/L Urine Color (Yellow) Urine Appearance (CLEAR) Urine pH (5-7) Ur Specific Gravit y (1.005-1.030) Urine Protein (Negative) Urine Glucose (UA) (Normal) Urine Ketones (Negative) Urine Blood (Negative) Urine Nitrate (Negative) Urine Bilirubin (Negative) Urine Urobilinogen (Negative) mg/dL Ur Leukocyte Meme ase (Negative) Urine RBC Urine WBC (0-5) /hpf Ur Squamous Epith Cells (0-5) /hpf Amorphous Sediment Urine Bacteria (NONE) /hpf Urine Opiates Scre en Negative (Negative) ng/mL Ur Barbiturates Sc reen Negative (Negative) ng/mL Ur Phencyclidine S crn Negative (Negative) ng/mL Ur Amphetamines Sc reen Negative (Negative) ng/mL U Benzodiazepines Scrn Negative (Negative) ng/mL Urine Cocaine Scre en Negative (Negative) ng/mL U Marijuana (THC) Screen Negative (Negative) ng/mL Ethyl Alcohol (0-10) mg/dL SARS-CoV-2 Ag (Rap id) (Negative) Discharge Plan Discharge Patient Disposition: Home Clinical Impression: Confusion Condition: Stable Prescriptions: Changed gabapentin 800 mg tablet 800 mg PO BID 30 Days Qty: 60 RF: 5 No Action cholecalciferol (vitamin D3) 25 mcg (1,000 unit) capsule 25 mcg PO DAILY RF: 0 thiamine HCl (vitamin B1) 100 mg tablet 100 mg PO DAILY RF: 0 cyanocobalamin (vitamin B-12) 1,000 mcg capsule 1,000 mcg PO DAILY RF: 0 omega-3 fatty acids 1,000 mg capsule 1,000 mg PO DAILY RF: 0 pantoprazole [Protonix] 40 mg tablet,delayed release (DR/EC) 40 mg PO DAILY RF: 0 meloxicam 15 mg tablet 15 mg PO DAILY Qty: 30 RF: 5 nitroglycerin [Nitrostat] 0.4 mg tablet, sublingual 0.4 mg SUBLINGUAL Q5M PRN (Reason: chest pain) Qty: 25 RF: 6 amlodipine 5 mg tablet 5 mg PO DAILY RF: 0 simvastatin 20 mg tablet 20 mg PO BEDTIME RF: 0 metoprolol tartrate 25 mg tablet 25 mg PO DAILY RF: 0 trazodone 150 mg tablet 150 mg PO BEDTIME RF: 0 Discharge Orders: Discharge ED (Routine); Ordered 06/09/21 Ordered By: Jose Morocho Referrals: Lise Domínguez DO [Primary Care Provider] - Discharge Diet: Usual diet Discharge Activity: Resume usual activity Patient Instructions: Opioid Safety Activity Restrictions/Additional Instructions: Follow up with your primary care provider for referal to neurology. Coding Level of Care Code ED [employer] Salesperson for Kathy Fwcyndi Exam Comprehensive
[2021-06-09 17:02] LABS: Charge for UA Resulting for Rev
[2021-06-09 17:07] LABS: Alanine Aminotransferase 20 U/L (0-41); Albumin Level 4.4 g/dL (3.5-5.2); Alkaline Phosphatase 82 IU/L (40-130); Anion Gap 14.8 (5-19); Aspartate Amino Transferase 21 U/L (0-40); Blood Urea Nitrogen 22 mg/dL (8-23); Carbon Dioxide 25 mmol/L (22-29); Chloride 100 mmol/L (98-107); Creatine Phosphokinase 93 U/L (39-308); Globulin 3.3 g/dL (1.3-4.6); Glomerular Filtration Rate 136.1 mL/min (90-130); Glucose 88 mg/dL (65-115); Lipase 46 U/L (13-60); Magnesium 2.1 mg/dL (1.7-2.3); Osmolality Calculated 285 mOsm/kg (285-295); Potassium 3.8 mmol/L (3.5-5.1); Sodium 136 mmol/L (136-145); Total Bilirubin 0.6 mg/dL (0.15-1.2); Total Protein 7.7 g/dL (6.6-8.7)
[2021-06-09 17:13] LABS: Amphetamines Screen Urine Negative (Negative); Barbiturates Screen Urine Negative (Negative); Benzodiazepines Screen Urine Negative (Negative); Cocaine Screen Urine Negative (Negative); Opiate Screen Urine Negative (Negative); PCP Screen Urine Negative (Negative); THC Screen Urine Negative (Negative)
[2021-06-09 17:23] LABS: Protein Urine Neg (Negative); Urine Appearance Clear (CLEAR); Urine Color Dark Yellow (Yellow); pH Urine 5 (5-7)
[2021-06-09 17:24] LABS: Add Urine Culture? No; Add Urine Microscopic? YES; Bacteria Urine TRACE /hpf; Bilirubin Urine 1+ (Negative); Blood Urine Neg (Negative); Glucose Urine UA Norm (Normal); Ketones Urine 1+ (Negative); Leukocyte Esterase Urine Negative (Negative); Nitrate Urine Negative (Negative); Squamous Epithelial Cell Urine 0-4 /hpf (0-5); Urobilinogen Urine 1 mg/dL (Negative)
[2021-06-09 17:48] LABS: Alcohol Level < 10 mg/dL (0-10)
[2021-06-09 18:34] VITALS: BP 157/100; PULSE 76; RESP 15; O2SAT 92
--- NOTE | 2021-06-13 11:04 | DCPLANNER ---
manager tax had message to schedule a follow up appointment for patient with neurology, patient stated that he wanted to see someone outside of [facility]. manager tax called patient, and asked patient if his primary care physician was making the referral for patient or if he would like caser up to make the referral for him. Patient stated that his primary care physician is making the referral for him.
== END 2021-06-09 18:35 | disposition home or self-care (01) ==
PROVIDERS: Emergency Provider Family Medicine; PCP Family Medicine
DX: R41.0 Disorientation, unspecified (principal); I10 Essential (primary) hypertension; I25.10 Atherosclerotic heart disease of native coronary artery without angina pectoris; E78.5 Hyperlipidemia, unspecified; Z95.1 Presence of aortocoronary bypass graft; F17.210 Nicotine dependence, cigarettes, uncomplicated; Z20.822 Contact with and (suspected) exposure to COVID-19
CPT/HCPCS: 36600; 70450; 71045; 80051; 80053; 80306; 80307; 81001; 81003; 82330; 82550; 82805; 83690; 83735; 85025; 87426; 93005; 99283

== ENCOUNTER → 2021-06-13 10:52 | Outpatient (BNVA) | payer MEDICARE, SELFPAY | PROVIDERS: PCP Family Medicine; Visit Provider Family Medicine | DX: R41.3 Other amnesia (principal); I25.10 Atherosclerotic heart disease of native coronary artery without angina pectoris; F17.220 Nicotine dependence, chewing tobacco, uncomplicated | CPT/HCPCS: 82607; 84443 ==

== ENCOUNTER → 2021-08-17 09:35 | Outpatient (BNVA) | payer MEDICARE, SELFPAY | PROVIDERS: PCP Family Medicine; Visit Provider Family Medicine | DX: E78.5 Hyperlipidemia, unspecified (principal) | CPT/HCPCS: 80053; 80061 ==

== ENCOUNTER 2021-11-13 17:03 | Emergency (ER) | payer MEDICARE, SELFPAY ==
[2021-11-13] VITALS (22 sets, daily range): BP systolic 94–182; BP diastolic 62–96; PULSE 75–148; RESP 17–24; TEMP 36.8; O2SAT 94–100; BMI 34.2
--- NOTE | 2021-11-13 17:22 | XRR_ITS ---
PROCEDURE INFORMATION: Exam: XR Chest Exam date and time: 11/13/2021 5:22 PM Age: 65 years old Clinical indication: Device placement; Ett placement (vent status); Additional info: AMS TECHNIQUE: Imaging protocol: XR of the chest. Views: 1 view. COMPARISON: No relevant prior studies available. FINDINGS: Tubes, catheters and devices: Endotracheal tube tip in place 5 cm above the shannan. Lungs: Unremarkable. No consolidation. Pleural spaces: Unremarkable. No pleural effusion. No pneumothorax. Heart/Mediastinum: Unremarkable. No cardiomegaly. Bones/joints: Sternotomy wires. XR/XR chest 1V portable [id number] IMPRESSION: Endotracheal tube tip in place 5 cm above the shannan.
--- NOTE | 2021-11-13 17:22 | CTR_ITS ---
PROCEDURE INFORMATION: Exam: CT Cervical Spine Without Contrast Exam date and time: 11/13/2021 5:22 PM Age: 65 years old Clinical indication: Injury or trauma; Fall; Blunt trauma; Injury details: Seizure, PT fell backward on concrete. Busted back of head open. C-collar in place. PT intubated. TECHNIQUE: Imaging protocol: Computed tomography images of the cervical spine without contrast. Radiation optimization: All CT scans at this facility use at least one of these dose optimization techniques: automated exposure control; mA and/or kV adjustment per patient size (includes targeted exams where dose is matched to clinical indication); or iterative reconstruction. COMPARISON: CT head wo con* [id number] 11/13/2021 6:25 PM RADIATION DOSE METRICS: Total DLP (mGy-cm): 817.72 FINDINGS: Vertebrae: No acute fracture. Normal alignment. C2-C3: No significant disc protrusion. No severe spinal canal stenosis. No significant neural foraminal narrowing. C3-C4: No significant disc protrusion. No severe spinal canal stenosis. No significant neural foraminal narrowing. C4-C5: No significant disc protrusion. No severe spinal canal stenosis. No significant neural foraminal narrowing. C5-C6: No significant disc protrusion. No severe spinal canal stenosis. No significant neural foraminal narrowing. C6-C7: No significant disc protrusion. No severe spinal canal stenosis. No significant neural foraminal narrowing. C7-T1: No significant disc protrusion. No severe spinal canal stenosis. No significant neural foraminal narrowing. Soft tissues: Unremarkable. Lungs: Biapical emphysematous changes. CT/CT cervical spin wo con* [id number] IMPRESSION: No acute findings.
--- NOTE | 2021-11-13 17:22 | CTR_ITS ---
PROCEDURE INFORMATION: Exam: CT Head Without Contrast Exam date and time: 11/13/2021 5:22 PM Age: 65 years old Clinical indication: Injury or trauma; Fall; Blunt trauma (contusions or hematomas); Injury details: Seizure, PT fell backward on concrete. Busted back of head open. C-collar in place. PT intubated. ; Prior surgery; Additional info: AMS TECHNIQUE: Imaging protocol: Computed tomography of the head without contrast. Radiation optimization: All CT scans at this facility use at least one of these dose optimization techniques: automated exposure control; mA and/or kV adjustment per patient size (includes targeted exams where dose is matched to clinical indication); or iterative reconstruction. COMPARISON: CT Head wo IV contrast* [id number] 01/21/2019 6:01 PM RADIATION DOSE METRICS: Total DLP (mGy-cm): 945.31 FINDINGS: Brain: Normal. No hemorrhage. Unremarkable white matter. No mass effect. Cerebral ventricles: No ventriculomegaly. Paranasal sinuses: Visualized sinuses are unremarkable. No fluid levels. Mastoid air cells: Visualized mastoid air cells are well aerated. Bones/joints: Left occipital chronic encephalomalacia with overlying craniotomy changes. Soft tissues: Unremarkable. CT/CT head wo con* [id number] IMPRESSION: 1. Negative for intracranial hemorrhage or mass effect. 2. Left occipital chronic encephalomalacia with overlying craniotomy changes.
--- NOTE | 2021-11-13 17:23 | ECG_ITS ---
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 Measurements Intervals [place] Rate: 152 P: [place]: QRS: -47 QRSD: 100 T: 56 QT: 292 QTc: 465 Interpretive Statements ATRIAL FLUTTER/TACHYCARDIA WITH RAPID VENTRICULAR RESPONSE POSSIBLE RIGHT VENTRICULAR CONDUCTION DELAY [RSR (QR) IN V1/V2] LEFT ANTERIOR FASCICULAR BLOCK [QRS AXIS <= -45, QR IN I, RS IN II] Compared to ECG 06/09/2021 16:52:42 Left anterior fascicular block now present Sinus bradycardia no longer present Myocardial infarct finding no longer present Electronically Signed On 11-13-2021 21:27:51 TRANSPORT TECHNICIAN by Juanito Suarez M.D. [id number] [email or web address]
[2021-11-13 17:37] LABS: ABG PCO2 54.1 mmHg (35-45); Arterial Blood Gas Hematocrit 52.9 % (42-52); Base Excess ABG -18.9 mmol/L (-2.0-2.0); Blood Gas Allen Test Pos; Blood Gas Operator Identificat ED; Blood Gas Sample Site Radial, left; Blood Gas Sample Type Arterial; Carboxyhemoglobin 0.6 %THgb (0.4-20.1); HCO3 ABG 13.1 mmol/L (22-26); HGB O2 Sat 94.2 % (95-100); Ionized Calcium Level - ABG 1.3 mmol/L (1.1-1.4); Methemoglobin 0.8 % (0.4-1.5); Oxygen Device NC; Oxygen Saturation ABG 95.4; Potassium Level - ABG 3.6 mmol/L (3.5-5.0); Total Hemoglobin 17.2 g/dL (14-18)
[2021-11-13 17:38] LABS: ABG PH Result 6.99 (7.35-7.45)
[2021-11-13 17:41] LABS: Basophils % 0.3 %; Eosinophils % 0.2 %; Hematocrit 51.5 % (42.0-52.0); Hemoglobin 16.9 g/dL (11.7-16.6); Lymphocytes # 2.1 10^3/uL (0.8-4.8); Lymphocytes % 24.2 %; Mean Corpuscular HGB Conc 32.8 g/dL (30.0-36.0); Mean Corpuscular Hemoglobin 32.8 pg (28.0-34.0); Monocytes # 0.6 10^3/uL (0.2-0.9); Monocytes % 6.8 %; Neutrophils # 5.91 10^3/uL (1.8-7.7); Nucleated Red Blood Cells % 0 %; Platelet Count 157 10^3/cmm (130-400); Red Blood Count 5.15 10^6/uL (4.1-5.3); Red Cell Distribution Width 12.4 % (12.1-15.1); White Blood Count 8.7 10^3/uL (4.0-10.0)
[2021-11-13 17:48] LABS: Glucose Point of Care 156 mg/dL (70-110)
[2021-11-13 18:19] LABS: Alanine Aminotransferase 37 U/L (0-41); Albumin Level 5.1 g/dL (3.5-5.2); Alkaline Phosphatase 90 IU/L (40-130); Aspartate Amino Transferase 32 U/L (0-40); Blood Urea Nitrogen 12 mg/dL (8-23); Calcium 10.2 mg/dL (8.5-10.5); Carbon Dioxide 15 mmol/L (22-29); Chloride 107 mmol/L (98-107); Globulin 3.2 g/dL (1.3-4.6); Glomerular Filtration Rate 97.6 mL/min (90-130); Glucose 165 mg/dL (65-115); Lipase 47 U/L (13-60); Osmolality Calculated 309 mOsm/kg (285-295); Sodium 148 mmol/L (136-145); Total Bilirubin 0.3 mg/dL (0.15-1.2); Total Protein 8.3 g/dL (6.6-8.7)
[2021-11-13 18:20] LABS: Troponin(5th) Baseline 7 ng/L (0-15)
--- NOTE | 2021-11-13 18:20 | W.ED.SEIZURE ---
HPI - Seizure General: Chief Complaint: Seizure Stated Complaint: SEIZURES Time Seen by Provider: 11/13/21 17:05 PFSH ED PFSH: Medical History Benign essential HTN Coronary artery disease involving [place] coronary artery Dyslipidemia Paroxysmal tachycardia PVD (peripheral vascular disease) Surgical History History of back surgery History of facial fracture repair History of hand surgery History of left hip replacement Presence of stent in LAD coronary artery 02/04/2014 S/P right coronary artery (RCA) stent placement 02/04/2014 S/P triple vessel bypass Status post aorto-coronary artery bypass graft Family History Other CAD (coronary artery disease) Lung disease Social History Smoking and tobacco status: current every day smoker smokeless tobacco Alcohol intake: never Course Vital Signs: Vital signs: Vital Signs Temperature 98.2 F 11/13/21 17:18 Pulse Rate 137 H 11/13/21 17:18 Respiratory Rate 17 11/13/21 17:57 Blood Pressure 158/79 11/13/21 17:18 Pulse Oximetry 94 11/13/21 17:18 MDM - Seizure Lab Data Result diagrams: 11/13/21 17:34 11/13/21 17:34 Labs: Laboratory Results WBC 8.7 10^3/uL (4.0-10.0) 11/13/21 17:34 RBC 5.15 10^6/uL (4.1-5.3) 11/13/21 17:34 Hgb 16.9 g/dL (11.7-16.6) H 11/13/21 17:34 Hct 51.5 % (42.0-52.0) 11/13/21 17:34 MCV 100.0 fl (80-94) H 11/13/21 17:34 MCH 32.8 pg (28.0-34.0) 11/13/21 17:34 MCHC 32.8 g/dL (30.0-36.0) 11/13/21 17:34 RDW 12.4 % (12.1-15.1) 11/13/21:34 Plt Count 157 10^3/cmm (130-400) 11/13/21: MPV 9.0 fL (7.4-10.4) 11/13/21:34 Neut % (Auto) 68.0 % 11/13/21 17: Lymph % (Auto) 24.2 % 11/13/21: [place] % (Auto) 6.8 % 11/13/21:34 Eos % (Auto) 0.2 % 11/13/21 17:34 Baso % (Auto) 0.3 % 11/13/21:34 Neut # (Auto) 5.91 10^3/uL (1.8-7.7) 11/13/21: Lymph # (Auto) 2.1 10^3/uL (0.8-4.8) 11/13/21:34 [place] # (Auto) 0.6 10^3/uL (0.2-0.9) 11/13/21: Eos # (Auto) 0.0 10^3/uL (0.0-0.8) 11/13/21:34 Baso # (Auto) 0.0 10^3/uL (0.0-0.1) 11/13/21: Nucleated RBC % (auto) 0 % 11/13/21: Nucleated RBCs # 0.0 /100WBC 11/13/21:34 Specimen Type Arterial 11/13/21: Sample Site Radial, left 11/13/21: ABG pH 6.99 (7.35-7.45) L* 11/13/21: ABG pCO2 54.1 mmHg (35-45) H 11/13/21: ABG pO2 111.0 mmHg (80.0-100.0) H 11/13/21: ABG HCO3 13.1 mmol/L (22-26) L 11/13/21: ABG O2 Saturation 95.4 11/13/21: ABG Base Excess -18.9 mmol/L (-2.0-2.0) L 11/13/21: [place] Test Pos 02/14/22 17:27 A-a O2 Gradient 3.0 mmHg (5-10) L 11/13/21 17:27 Hematocrit 52.9 % (42-52) H 11/13/21 17:27 Hgb O2 Saturation 94.2 % (95-100) L 11/13/21 17:27 Carboxyhemoglobin 0.6 %THgb (0.4-20.1) 11/13/21 17:27 Methemoglobin 0.8 % (0.4-1.5) 11/13/21 17:27 Total Hemoglobin 17.2 g/dL (14-18) 11/13/21 17:27 Sodium 149.0 mmol/L (131-143) H 11/13/21 17:27 Potassium 3.6 mmol/L (3.5-5.0) 11/13/21 17:27 Glucose 183.0 mg/dL (70-115) H 11/13/21 17:27 Ionized Calcium 1.3 mmol/L (1.1-1.4) 11/13/21 17:27 O2 Delivery Device Nc 11/13/21 17:27 O2 Liters/Min 2.0 % 11/13/21 17:27 FiO2 28.0 % 11/13/21 17:27 [employer] ID Ed 11/13/21 17:27 Chloride 107 mmol/L (98-107) 11/13/21 17:34 BUN 12 mg/dL (8-23) 11/13/21 17:34 Creatinine 0.8 mg/dL (0.7-1.2) 11/13/21 17:34 GFR Calculation 97.6 mL/min (90-130) 11/13/21 17:34 POC Glucose 156 mg/dL (70-110) H 11/13/21 17:34 Calcium 10.2 mg/dL (8.5-10.5) 11/13/21 17:34 Total Bilirubin 0.3 mg/dL (0.15-1.2) 11/13/21 17:34 AST 32 U/L (0-40) 11/13/21 17:34 ALT 37 U/L (0-41) 11/13/21 17:34 Alkaline Phosphatase 90 IU/L (40-130) 11/13/21 17:34 Troponin T Baseline 7 ng/L (0-15) 11/13/21 17:34 Total Protein 8.3 g/dL (6.6-8.7) 11/13/21 17:34 Albumin 5.1 g/dL (3.5-5.2) 11/13/21 17:34 Globulin 3.2 g/dL (1.3-4.6) 11/13/21 17:34 Lipase 47 U/L (13-60) 11/13/21 17:34 Discharge Plan Discharge Condition: Stable Prescriptions: No Action cholecalciferol (vitamin D3) 25 mcg (1,000 unit) capsule 25 mcg PO DAILY 0RF thiamine HCl (vitamin B1) 100 mg tablet 100 mg PO DAILY 0RF omega-3 fatty acids 1,000 mg capsule 1,000 mg PO DAILY 0RF nitroglycerin [Nitrostat] 0.4 mg tablet, sublingual 0.4 mg SUBLINGUAL Q5M PRN (Reason: chest pain) Qty: 25 6RF pantoprazole [Protonix] 40 mg tablet,delayed release (DR/EC) 40 mg PO DAILY 90 Days Qty: 90 1RF meloxicam 15 mg tablet 15 mg PO DAILY Qty: 30 5RF metoprolol tartrate 25 mg tablet 25 mg PO DAILY 30 Days Qty: 90 1RF simvastatin 20 mg tablet See Rx Instructions .ROUTE .COMPLEX Qty: 90 1RF Dose Instruction: TAKE ONE TABLET BY MOUTH EVERY DAY AT BEDTIME Rx Instructions: TAKE ONE TABLET BY MOUTH EVERY DAY AT BEDTIME gabapentin 800 mg tablet See Rx Instructions .ROUTE .COMPLEX Qty: 105 5RF Dose Instruction: TAKE 1 TABLET BY MOUTH EVERY MORNING AND AT NOON. TAKE 1 & 1/2 TABLETS AT NIGHT Rx Instructions: TAKE 1 TABLET BY MOUTH EVERY MORNING AND AT NOON. TAKE 1 & 1/2 TABLETS AT NIGHT trazodone 150 mg tablet See Rx Instructions .ROUTE .COMPLEX Qty: 90 0RF Dose Instruction: TAKE ONE TABLET BY MOUTH EVERY DAY NEEDED FOR INSOMNIA Rx Instructions: TAKE ONE TABLET BY MOUTH EVERY DAY NEEDED FOR INSOMNIA amlodipine 5 mg tablet 5 mg PO DAILY 30 Days Qty: 30 5RF Referrals: Lise Domínguez DO [Primary Care Provider] - Coding Level of Care Code ED Ophthalmic Photographer for Kathy Alvares
--- NOTE | 2021-11-13 18:29 | ED_ITS ---
Documented by User: Dejon Looney MD 11/15/21 11:48 HPI - General Adult General: Chief complaint: Seizure Stated complaint: SEIZURES Time Seen by Provider: 11/13/21 17:05 History of Present Illness: 65-year-old male with a history of prior brain abscesses, hypertension, hyperlipidemia, CAD resents emergency room from group home for concerns of seizure. Around 4:30 PM, patient had an episode of lightheadedness and fell backwards hit his head. Since then, patient has not regained consciousness. Patient continues to be somnolent and confused. While observed in the emergency room, patient had another episode of witnessed seizure. Patient began develop difficulty breathing and increased work of breathing's. Rest of history limited given severity of symptoms. Decision was made to intubate patient shortly upon arrival for concerns of respiratory failure and altered mental status. Onset: 2 hrs ago Duration:ongoing Location:group home Severity:severe Review of Systems General: Reports: ROS unobtainable due to endotracheal tube, ROS unobtainable due to medical condition and ROS unobtainable due to mental status Neuro: Reports: other (+confusion, altered mental status) PFSH ED PFSH: Medical History Benign essential HTN Coronary artery disease involving [place] coronary artery Dyslipidemia Paroxysmal tachycardia PVD (peripheral vascular disease) Surgical History History of back surgery History of facial fracture repair History of hand surgery History of left hip replacement Presence of stent in LAD coronary artery 02/04/2014 S/P right coronary artery (RCA) stent placement 02/04/2014 S/P triple vessel bypass Status post aorto-coronary artery bypass graft Family History Other CAD (coronary artery disease) Lung disease Social History Smoking and tobacco status: current every day smoker smokeless tobacco Alcohol intake: never Physical Exam Const: EXAM LIMITATIONS: altered mental status HENMT: HEAD & SCALP: other (+mild abrasions and bleeding over the occiptal skull) OTHER: +mild gumline bleeding and blood around teeth Eye: COMMON NORMALS: EOMs intact bilaterally Neck/C-Spine: OTHER: C-collar in place Resp: EFFORT & INSPECTION: Yes abnormal respiratory pattern and Yes respiratory distress AUSCULTATION: breath sounds absent Cardio: RATE: tachycardic GI: COMMON NORMALS: Soft to palpation and non-tender PALPATION: Yes Soft to palpation Extremity: COMMON NORMALS: full ROM Neuro: OTHER: Unable to assess neurological finding given altered mental status Psych: OTHER: +unable to assess neurological status given altered mental status Procedures Central Line Placement Left Femoral: Time Out Performed: Yes Patient Placed on Monitor/Pulse Ox: Yes MD Prep: mask, gown and gloves Central Line Prep: Chlorhexidine scrub Ultrasound Used for Placement: Yes Central Line Lumen Inserted: triple Post Procedure: sutured in place, good blood return, all ports aspirated, flushed, capped and sterile dressing applied Patient Tolerated Procedure: well Complications: none Intubation Time out performed: Yes sedative: Etomidate Mg Given: 30 paralytic: Vecuronium Mg Given: 20 Laryngoscope: Sean ET Tube Size: 8 ET Tube Uncuffed: No Tube Secured Depth (cm): 24 Tube Secured Location: lips Tube Placement Confirmation: visualized tube passing through cords, equal breath sounds bilaterally and confirmation by capnometry Patient Tolerated Procedure: well Intubation Complications: none Lumbar Puncture Time Out Performed: Yes Patient Position: right lateral decubitus Skin Prep: Povidone-Iodine 1% and 0.5% Chlorhexidine/Alcohol Spinal Needle Gauge: 22G Interspace Used: L4-L5 Fluid Initially Obtained: clear Complications: none Course Vital Signs: Vital signs: Vital Signs Temperature 100.9 F H 11/14/21 00:00 Pulse Rate 71 11/14/21 09:00 Respiratory Rate 16 11/14/21 10:27 Blood Pressure 112/69 11/14/21 09:00 Pulse Oximetry 100 11/14/21 09:00 [facility] - General Adult Medical Decision Making 65-year-old male with a history of CAD, hypertension, hyperlipidemia, prior brain abscess s/p craniotomy presents emergency room with concerns for altered mental status and seizure. On arrival, patient was noted to be seizing again. Patient has prolonged postictal. With increased work of breathing. Decision was made to intubate shortly upon arrival. Patient received 10 mg of Versed, 1 g of Keppra, and is currently on a Versed and propofol drip. CT brain negative for any acute finding. X-ray chest negative for any finding. Patient is noted to have a pH of 6.9. Closely Tylenol drug screen appears to be within normal limit. EKG is nonischemic. Pending repeat ABG. Central line was placed in the L femoral, please refer to the procedure note. LP was performed please refer to the procedure note for LP. LP results pending. He is on acyclovir, meninigitic coverage for vancomycin and ceftriaxone. Blood cultures pending. Case signed out ot Dr. Stone pending transfer and LP results Lab Data : 11/14/21 04:44 11/14/21 04:09 Radiology Impressions Cervical Spine CT 11/13/21 17:22 IMPRESSION: No acute findings. Chest X-Ray 11/13/21 17:22 IMPRESSION: Endotracheal tube tip in place 5 cm above the shannan. Head CT 11/13/21 17:22 IMPRESSION: 1. Negative for intracranial hemorrhage or mass effect. 2. Left occipital chronic encephalomalacia with overlying craniotomy changes. Laboratory Results WBC 8.0 10^3/uL (4.0-10.0) 11/14/21 04:44 Corrected WBC Cancelled 11/14/21 04:09 RBC 4.38 10^6/uL (4.1-5.3) 11/14/21 04:44 Hgb 14.3 g/dL (11.7-16.6) 11/14/21 04:44 Hct 40.6 % (42.0-52.0) L 11/14/21 04:44 MCV 92.7 fl (80-94) D 11/14/21 04:44 MCH 32.6 pg (28.0-34.0) 11/14/21 04:44 MCHC 35.2 g/dL (30.0-36.0) D 11/14/21 04:44 RDW 12.5 % (12.1-15.1) 11/14/21 04:44 Plt Count 151 10^3/cmm (130-400) 11/14/21 04:44 MPV 9.2 fL (7.4-10.4) 11/14/21 04:44 Gran % Cancelled 11/14/21 04:09 Neut % (Auto) 61.0 % 11/14/21 04:44 Lymph % (Auto) 25.3 % 11/14/21 04:44 [place] % (Auto) 12.4 % 11/14/21 04:44 Eos % (Auto) 0.5 % 11/14/21 04:44 Baso % (Auto) 0.5 % 11/14/21 04:44 Neut # (Auto) 4.86 10^3/uL (1.8-7.7) 11/14/21 04:44 Lymph # (Auto) 2.0 10^3/uL (0.8-4.8) 11/14/21 04:44 [place] # (Auto) 1.0 10^3/uL (0.2-0.9) H 11/14/21 04:44 Eos # (Auto) 0.0 10^3/uL (0.0-0.8) 11/14/21 04:44 Baso # (Auto) 0.0 10^3/uL (0.0-0.1) 11/14/21 04:44 Absolute Gran (auto) Cancelled 11/14/21 04:09 Nucleated RBC % (auto) 0 % 11/14/21 04:44 Nucleated RBCs # 0.0 /100WBC 11/14/21 04:44 Specimen Type Arterial 11/14/21 05:15 Sample Site Brachial, right 11/14/21 05:15 ABG pH 7.41 (7.35-7.45) 11/14/21 05:15 ABG pCO2 40.9 mmHg (35-45) 11/14/21 05:15 ABG pO2 133.0 mmHg (80.0-100.0) H 11/14/21 05:15 ABG HCO3 25.7 mmol/L (22-26) 11/14/21 05:15 ABG O2 Saturation 95.4 11/13/21 17:27 ABG Base Excess 0.9 mmol/L (-2.0-2.0) 11/14/21 05:15 Martínez Test N/a 11/14/21 05:15 A-a O2 Gradient 3.0 mmHg (5-10) L 11/13/21 17:27 Hematocrit 44.9 % (42-52) 11/14/21 05:15 Hgb O2 Saturation 94.2 % (95-100) L 11/13/21 17:27 Carboxyhemoglobin 0.6 %THgb (0.4-20.1) 11/13/21 17:27 Methemoglobin 0.8 % (0.4-1.5) 11/13/21 17:27 Total Hemoglobin 17.2 g/dL (14-18) 11/13/21 17:27 Sodium 149.0 mmol/L (131-143) H 11/13/21 17:27 Potassium 3.6 mmol/L (3.5-5.0) 11/13/21 17: Glucose 183.0 mg/dL (70-115) H 11/13/21 17:27 Ionized Calcium 1.3 mmol/L (1.1-1.4) 11/13/21 17: O2 Delivery Device Vent 11/14/21 05:15 O2 Liters/Min 2.0 % 11/13/21 17: FiO2 40.0 % 11/14/21 05:15 Tidal Volume 0.45 11/14/21 05:15 PEEP 6.0 cmH20 11/14/21 05:15 Band Presser ID Rieri 11/14/21 05:15 Sodium 143 mmol/L (136-145) 11/14/21 04:09 Potassium 3.4 mmol/L (3.5-5.1) L 11/14/21 04:09 Chloride 107 mmol/L (98-107) 11/14/21 04:09 Carbon Dioxide 24 mmol/L (22-29) 11/14/21 04:09 Anion Gap 15.4 (5-19) 11/14/21 04:09 BUN 11 mg/dL (8-23) 11/14/21 04:09 Creatinine 1.1 mg/dL (0.7-1.2) 11/14/21 04:09 GFR Calculation 67.6 mL/min (90-130) L 11/14/21 04:09 Glucose 98 mg/dL (65-115) 11/14/21 04:09 POC Glucose 156 mg/dL (70-110) H 11/13/21 17:34 Calculated Osmolality 295 mOsm/kg (285-295) 11/14/21 04:09 Calcium 8.0 mg/dL (8.5-10.5) L 11/14/21 04:09 Total Bilirubin 0.3 mg/dL (0.15-1.2) 11/14/21 04:09 Direct Bilirubin Cancelled 11/13/21 22:30 Indirect Bilirubin Cancelled 11/13/21 22:30 AST 21 U/L (0-40) 11/14/21 04:09 ALT 23 U/L (0-41) 11/14/21 04:09 Alkaline Phosphatase 64 IU/L (40-130) 11/14/21 04:09 Troponin T Baseline 7 ng/L (0-15) 11/13/21 17:34 Troponin T 120 Minute 19.16 ng/L (0-15) H 11/13/21 19:59 Delta Troponin T 12.16 ABS# (0-10) H* 11/13/21 19:59 Troponin T Hi Sens 6Hr 32.11 ng/L (0-15) H 11/13/21 23:30 Troponin T Hi Sens 6Hr Delta 25.11 ng/L (0-12) H* 11/13/21 23:30 Total Protein 6.1 g/dL (6.6-8.7) L D 11/14/21 04:09 Albumin 3.9 g/dL (3.5-5.2) 11/14/21 04:09 Globulin 2.2 g/dL (1.3-4.6) 11/14/21 04:09 Lipase 47 U/L (13-60) 11/13/21 17:34 TSH 1.60 uIU/mL (0.27-4.20) 11/14/21 04:09 Urine Color Yellow (Yellow) 11/13/21 18:58 Urine Appearance Clear (CLEAR) 11/13/21 18:58 Urine pH 5 (5-7) 11/13/21 18:58 Ur Specific [place] 1.025 (1.005-1.030) 11/13/21 18:58 Urine Protein Trace (Negative) 11/13/21 18:58 Urine Glucose (UA) 1+ (Normal) H 11/13/21 18:58 Urine Ketones Negative (Negative) 11/13/21 18:58 Urine Blood 2+ (Negative) H 11/13/21 18:58 Urine Nitrate Negative (Negative) 11/13/21 18:58 Urine Bilirubin Neg (Negative) 11/13/21 18:58 Urine Urobilinogen Norm mg/dL (Negative) 11/13/21 18:58 Ur Leukocyte Esterase Negative (Negative) 11/13/21 18:58 Urine RBC 0-4 /hpf (0-2) H 11/13/21 18:58 Urine WBC 0-4 /hpf (0-5) H 11/13/21 18:58 Ur Squamous Epith Cells Rare /hpf (0-5) 11/13/21 18:58 Amorphous Sediment Not Reportable 11/13/21 18:58 Urine Bacteria Trace /hpf (NONE) 11/13/21 18:58 Coarse Granular Casts 5-10 /lpf H 11/13/21 18:58 Urine Mucus Trace /hpf 11/13/21 18:58 CSF Appearance Clear (CLEAR) 11/13/21 22:30 CSF Color Colorless (COLORLESS) 11/13/21 22:30 CSF Specific [place] 1.015 11/13/21 22:30 CSF WBC 1 /uL (0-5) 11/13/21 22:30 CSF RBC 0 10^3/uL (0-0) 11/13/21 22:30 CSF Mononuclear # Auto 0.001 10^3/uL (50-90) L 11/13/21 22:30 CSF Mononuclear WBCs % 100 % (50-90) H 11/13/21 22:30 CSF Polynuclear WBCs # 0.000 10^3/uL (0-10) 11/13/21 22:30 CSF Polynuclear WBCs % 0 % (0-10) 11/13/21 22:30 CSF Diff Comment Yes 11/13/21 22:30 CSF Glucose 87 mg/dL (40-70) H 11/13/21 22:30 CSF Lactate 2.7 mmol/L 11/13/21 22:30 CSF Total Protein 0 mg/dL (15-45) L 11/13/21 22:30 Salicylates < 0.3 mg/dL (3-10) L 11/13/21 17:34 Urine Opiates Screen Negative ng/mL (Negative) 11/13/21 18:58 Acetaminophen < 5.0 ug/mL (10-30) L 11/13/21 17:34 Ur Barbiturates Screen Negative ng/mL (Negative) 11/13/21 18:58 Ur Phencyclidine Scrn Negative ng/mL (Negative) 11/13/21 18:58 Ur Amphetamines Screen Negative ng/mL (Negative) 11/13/21 18:58 U Benzodiazepines Scrn Negative ng/mL (Negative) 11/13/21 18:58 Urine Cocaine Screen Negative ng/mL (Negative) 11/13/21 18:58 U Marijuana (THC) Screen Negative ng/mL (Negative) 11/13/21 18:58 Coronavirus 229E (PCR) Not detected (NOT DETECT) 11/14/21 00:52 SARS-CoV-2 (PCR) Not detected (NOT DETECT) 11/14/21 00:52 SARS-CoV-2 Ag (Rapid) Negative (Negative) 11/14/21 04:25 Misc Test Reference Cancelled 11/13/21 22:30 Imaging Data Other Imaging: Radiologist's impression: [address] [address] [address] Scan Report Signed Patient: Daniel Quinteros Unit #: [id number] : 1955 Age/Sex: 65 / M ADM Date: 11/13/21 Loc: ER Room/Bed: Attending Dr: Ordering Provider/Ordering MD: Dejon Looney MD Date of Service: 11/13/21 Procedure(s): CT head wo con* [id number] Accession Number(s): [id number] Report Number: [id number] PROCEDURE INFORMATION: Exam: CT Head Without Contrast Exam date and time: 11/13/2021 5:22 PM Age: 65 years old Clinical indication: Injury or trauma; Fall; Blunt trauma (contusions or hematomas); Injury details: Seizure, PT fell backward on concrete. Busted back of head open. C-collar in place. PT intubated. ; Prior surgery; Additional info: AMS TECHNIQUE: Imaging protocol: Computed tomography of the head without contrast. Radiation optimization: All CT scans at this facility use at least one of these dose optimization techniques: automated exposure control; mA and/or kV adjustment per patient size (includes targeted exams where dose is matched to clinical indication); or iterative reconstruction. COMPARISON: CT Head wo IV contrast* [id number] 01/21/2019 6:01 PM RADIATION DOSE METRICS: Total DLP (mGy-cm): 945.31 FINDINGS: Brain: Normal. No hemorrhage. Unremarkable white matter. No mass effect. Cerebral ventricles: No ventriculomegaly. Paranasal sinuses: Visualized sinuses are unremarkable. No fluid levels. Mastoid air cells: Visualized mastoid air cells are well aerated. Bones/joints: Left occipital chronic encephalomalacia with overlying craniotomy changes. Soft tissues: Unremarkable. CT/CT head wo con* [id number] IMPRESSION: 1. Negative for intracranial hemorrhage or mass effect. 2. Left occipital chronic encephalomalacia with overlying craniotomy changes. ? Dictated By: Hugh Lyles MD Signed By: Hugh Lyles MD Signed Date/Time: 11/13/211840 DD/ [address] [address] XRay Report Signed Patient: Daniel Quinteros Unit #: [id number] : 1955 Age/Sex: 65 / M ADM Date: 11/13/21 Loc: ER Room/Bed: Attending Dr: Ordering Provider/Ordering MD: Dejon Looney MD Date of Service: 11/13/21 Procedure(s): XR chest 1V portable [id number] Accession Number(s): [id number] Report Number: [id number] PROCEDURE INFORMATION: Exam: XR Chest Exam date and time: 11/13/2021 5:22 PM Age: 65 years old Clinical indication: Device placement; Ett placement (vent status); Additional info: AMS TECHNIQUE: Imaging protocol: XR of the chest. Views: 1 view. COMPARISON: No relevant prior studies available. FINDINGS: Tubes, catheters and devices: Endotracheal tube tip in place 5 cm above the shannan. Lungs: Unremarkable. No consolidation. Pleural spaces: Unremarkable. No pleural effusion. No pneumothorax. Heart/Mediastinum: Unremarkable. No cardiomegaly. Bones/joints: Sternotomy wires. XR/XR chest 1V portable [id number] IMPRESSION: Endotracheal tube tip in place 5 cm above the shannan. ? Dictated By: Hugh Lyles MD Signed By: Hugh Lyles MD Signed Date/Time: 11/13/211846 DD/ [address] [address] [address] Scan Report Signed Patient: Daniel Quinteros Unit #: [id number] : 1955 Age/Sex: 65 / M ADM Date: 11/13/21 Loc: ER Room/Bed: Attending Dr: Ordering Provider/Ordering MD: Dejon Looney MD Date of Service: 11/13/21 Procedure(s): CT cervical spin wo con* [id number] Accession Number(s): [id number] Report Number: [id number] PROCEDURE INFORMATION: Exam: CT Cervical Spine Without Contrast Exam date and time: 11/13/2021 5:22 PM Age: 65 years old Clinical indication: Injury or trauma; Fall; Blunt trauma; Injury details: Seizure, PT fell backward on concrete. Busted back of head open. C-collar in place. PT intubated. TECHNIQUE: Imaging protocol: Computed tomography images of the cervical spine without contrast. Radiation optimization: All CT scans at this facility use at least one of these dose optimization techniques: automated exposure control; mA and/or kV adjustment per patient size (includes targeted exams where dose is matched to clinical indication); or iterative reconstruction. COMPARISON: CT head wo con* [id number] 11/13/2021 6:25 PM RADIATION DOSE METRICS: Total DLP (mGy-cm): 817.72 FINDINGS: Vertebrae: No acute fracture. Normal alignment. C2-C3: No significant disc protrusion. No severe spinal canal stenosis. No significant neural foraminal narrowing. C3-C4: No significant disc protrusion. No severe spinal canal stenosis. No significant neural foraminal narrowing. C4-C5: No significant disc protrusion. No severe spinal canal stenosis. No significant neural foraminal narrowing. C5-C6: No significant disc protrusion. No severe spinal canal stenosis. No significant neural foraminal narrowing. C6-C7: No significant disc protrusion. No severe spinal canal stenosis. No significant neural foraminal narrowing. C7-T1: No significant disc protrusion. No severe spinal canal stenosis. No significant neural foraminal narrowing. Soft tissues: Unremarkable. Lungs: Biapical emphysematous changes. CT/CT cervical spin wo con* [id number] IMPRESSION: No acute findings. ? Dictated By: Hugh Lyles MD Signed By: Hugh Lyles MD Signed Date/Time: 11/13/21 184 DD/ 1722 Critical Care Time Critical Care Time: Critical Care Time: Yes Total Critical Care Time: 45 Attestation: The high probability of a clinically significant, sudden or life threatening deterioration of the patient's Neurological system(s) required my full and dire ct attention, intervention and personal management. The critical care time is as shown. This time is in addition to time spent performing any reported procedures but includes the following: [x] Data and vital sign review and interpretation [x] Patient assessment, examination and intervention [x] Documentation [x] Medication orders and management Discharge Plan Discharge Patient Disposition: Transfer to ED Clinical Impression: Grand mal status, epileptic, Acidosis Condition: Stable Prescriptions: No Action cholecalciferol (vitamin D3) 25 mcg (1,000 unit) capsule 25 mcg PO DAILY 0RF thiamine HCl (vitamin B1) 100 mg tablet 100 mg PO DAILY 0RF omega-3 fatty acids 1,000 mg capsule 1,000 mg PO DAILY 0RF nitroglycerin [Nitrostat] 0.4 mg tablet, sublingual 0.4 mg SUBLINGUAL Q5M PRN (Reason: chest pain) Qty: 25 6RF pantoprazole [Protonix] 40 mg tablet,delayed release (DR/EC) 40 mg PO DAILY 90 Days Qty: 90 1RF meloxicam 15 mg tablet 15 mg PO DAILY Qty: 30 5RF metoprolol tartrate 25 mg tablet 25 mg PO DAILY 30 Days Qty: 90 1RF simvastatin 20 mg tablet See Rx Instructions .ROUTE .COMPLEX Qty: 90 1RF Dose Instruction: TAKE ONE TABLET BY MOUTH EVERY DAY AT BEDTIME Rx Instructions: TAKE ONE TABLET BY MOUTH EVERY DAY AT BEDTIME gabapentin 800 mg tablet See Rx Instructions .ROUTE .COMPLEX Qty: 105 5RF Dose Instruction: TAKE 1 TABLET BY MOUTH EVERY MORNING AND AT NOON. TAKE 1 & 1/2 TABLETS AT NIGHT Rx Instructions: TAKE 1 TABLET BY MOUTH EVERY MORNING AND AT NOON. TAKE 1 & 1/2 TABLETS AT NIGHT trazodone 150 mg tablet See Rx Instructions .ROUTE .COMPLEX Qty: 90 0RF Dose Instruction: TAKE ONE TABLET BY MOUTH EVERY DAY NEEDED FOR INSOMNIA Rx Instructions: TAKE ONE TABLET BY MOUTH EVERY DAY NEEDED FOR INSOMNIA amlodipine 5 mg tablet 5 mg PO DAILY 30 Days Qty: 30 5RF Referrals: Lise Domínguez DO [Primary Care Provider] - Sign Out Sign Out Data: Patient Sign Out occurred on 11/14/21 at 06:27. Patient's care was discussed, and care was transferred from to Jose Morocho DO. Coding Level of Care Code ED Gerontological Nurse Practitioner for Chg Fwd Exam Detailed Documented by User: Jose Morocho DO 11/14/21 09:36 HPI - General Adult General: Chief complaint: Seizure Stated complaint: SEIZURES Time Seen by Provider: 11/13/21 17:05 PFSH ED PFSH: Medical History Benign essential HTN Coronary artery disease involving [place] coronary artery Dyslipidemia Paroxysmal tachycardia PVD (peripheral vascular disease) Surgical History History of back surgery History of facial fracture repair History of hand surgery History of left hip replacement Presence of stent in LAD coronary artery 02/04/2014 S/P right coronary artery (RCA) stent placement 02/04/2014 S/P triple vessel bypass Status post aorto-coronary artery bypass graft Family History Other CAD (coronary artery disease) Lung disease Social History Smoking and tobacco status: current every day smoker smokeless tobacco Alcohol intake: never Course Vital Signs: Vital signs: Vital Signs Temperature 100.9 F H 11/14/21 00:00 Pulse Rate 71 11/14/21 09:00 Respiratory Rate 16 11/14/21 10:27 Blood Pressure 112/69 11/14/21 09:00 Pulse Oximetry 100 11/14/21 09:00 MDM - General Adult Medical Decision Making 65-year-old male with a history of CAD, hypertension, hyperlipidemia, prior brain abscess s/p craniotomy presents emergency room with concerns for altered mental status and seizure. On arrival, patient was noted to be seizing again. Patient has prolonged postictal. With increased work of breathing. Decision was made to intubate shortly upon arrival. Patient received 10 mg of Versed, 1 g of Keppra, and is currently on a Versed and propofol drip. CT brain negative for any acute finding. X-ray chest negative for any finding. Patient is noted to have a pH of 6.9. Closely Tylenol drug screen appears to be within normal limit. EKG is nonischemic. Pending repeat ABG. Central line was placed in the L femoral, please refer to the procedure note. LP was performed please refer to the procedure note for LP. LP results pending. He is on acyclovir, meninigitic coverage for vancomycin and ceftriaxone. Blood cultures pending. Case signed out ot Dr. Stone pending transfer and LP results November 14, 2021 8:55 AM Care assumed a change of shift from Dr. Stone. Discussed with Dr. Baldwin from [facility] they will accept patient on transfer we are waiting for a bed assignment and will contact [facility] for transportation arrangements. Medical Records I reviewed the patient's medical records. Lab Data I reviewed the patient's lab results. : 11/14/21 04:44 11/14/21 04:09 Radiology Impressions Cervical Spine CT 11/13/21 17:22 IMPRESSION: No acute findings. Chest X-Ray 11/13/21 17:22 IMPRESSION: Endotracheal tube tip in place 5 cm above the shannan. Head CT 11/13/21 17:22 IMPRESSION: 1. Negative for intracranial hemorrhage or mass effect. 2. Left occipital chronic encephalomalacia with overlying craniotomy changes. Laboratory Results WBC 8.0 10^3/uL (4.0-10.0) 11/14/21 04:44 Corrected WBC Cancelled 11/14/21 04:09 RBC 4.38 10^6/uL (4.1-5.3) 11/14/21 04:44 Hgb 14.3 g/dL (11.7-16.6) 11/14/21 04:44 Hct 40.6 % (42.0-52.0) L 11/14/21 04:44 MCV 92.7 fl (80-94) D 11/14/21 04:44 MCH 32.6 pg (28.0-34.0) 11/14/21 04:44 MCHC 35.2 g/dL (30.0-36.0) D 11/14/21 04:44 RDW 12.5 % (12.1-15.1) 11/14/21 04:44 Plt Count 151 10^3/cmm (130-400) 11/14/21 04:44 MPV 9.2 fL (7.4-10.4) 11/14/21 04:44 Gran % Cancelled 11/14/21 04:09 Neut % (Auto) 61.0 % 11/14/21 04:44 Lymph % (Auto) 25.3 % 11/14/21 04:44 [place] % (Auto) 12.4 % 11/14/21 04:44 Eos % (Auto) 0.5 % 11/14/21 04:44 Baso % (Auto) 0.5 % 11/14/21 04:44 Neut # (Auto) 4.86 10^3/uL (1.8-7.7) 11/14/21 04:44 Lymph # (Auto) 2.0 10^3/uL (0.8-4.8) 11/14/21 04:44 [place] # (Auto) 1.0 10^3/uL (0.2-0.9) H 11/14/21 04:44 Eos # (Auto) 0.0 10^3/uL (0.0-0.8) 11/14/21 04:44 Baso # (Auto) 0.0 10^3/uL (0.0-0.1) 11/14/21 04:44 Absolute Gran (auto) Cancelled 11/14/21 04:09 Nucleated RBC % (auto) 0 % 11/14/21 04:44 Nucleated RBCs # 0.0 /100WBC 11/14/21 04:44 Specimen Type Arterial 11/14/21 05:15 Sample Site Brachial, right 11/14/21 05:15 ABG pH 7.41 (7.35-7.45) 11/14/21 05:15 ABG pCO2 40.9 mmHg (35-45) 11/14/21 05:15 ABG pO2 133.0 mmHg (80.0-100.0) H 11/14/21 05:15 ABG HCO3 25.7 mmol/L (22-26) 11/14/21 05:15 ABG O2 Saturation 95.4 11/13/21 17:27 ABG Base Excess 0.9 mmol/L (-2.0-2.0) 11/14/21 05:15 Martínez Test N/a 11/14/21 05:15 A-a O2 Gradient 3.0 mmHg (5-10) L 11/13/21 17:27 Hematocrit 44.9 % (42-52) 11/14/21 05:15 Hgb O2 Saturation 94.2 % (95-100) L 11/13/21 17:27 Carboxyhemoglobin 0.6 %THgb (0.4-20.1) 11/13/21 17:27 Methemoglobin 0.8 % (0.4-1.5) 11/13/21 17:27 Total Hemoglobin 17.2 g/dL (14-18) 11/13/21 17:27 Sodium 149.0 mmol/L (131-143) H 11/13/21 17:27 Potassium 3.6 mmol/L (3.5-5.0) 11/13/21 17:27 Glucose 183.0 mg/dL (70-115) H 11/13/21 17:27 Ionized Calcium 1.3 mmol/L (1.1-1.4) 11/13/21 17:27 O2 Delivery Device Vent 11/14/21 05:15 O2 Liters/Min 2.0 % 11/13/21 17:27 FiO2 40.0 % 11/14/21 05:15 Tidal Volume 0.45 11/14/21 05:15 PEEP 6.0 cmH20 11/14/21 05:15 Band Presser ID Rieri 11/14/21 05:15 Sodium 143 mmol/L (136-145) 11/14/21 04:09 Potassium 3.4 mmol/L (3.5-5.1) L 11/14/21 04:09 Chloride 107 mmol/L (98-107) 11/14/21 04:09 Carbon Dioxide 24 mmol/L (22-29) 11/14/21 04:09 Anion Gap 15.4 (5-19) 11/14/21 04:09 BUN 11 mg/dL (8-23) 11/14/21 04:09 Creatinine 1.1 mg/dL (0.7-1.2) 11/14/21 04:09 GFR Calculation 67.6 mL/min (90-130) L 11/14/21 04:09 Glucose 98 mg/dL (65-115) 11/14/21 04:09 POC Glucose 156 mg/dL (70-110) H 11/13/21 17:34 Calculated Osmolality 295 mOsm/kg (285-295) 11/14/21 04:09 Calcium 8.0 mg/dL (8.5-10.5) L 11/14/21 04:09 Total Bilirubin 0.3 mg/dL (0.15-1.2) 11/14/21 04:09 Direct Bilirubin Cancelled 11/13/21 22:30 Indirect Bilirubin Cancelled 11/13/21 22:30 AST 21 U/L (0-40) 11/14/21 04:09 ALT 23 U/L (0-41) 11/14/21 04:09 Alkaline Phosphatase 64 IU/L (40-130) 11/14/21 04:09 Troponin T Baseline 7 ng/L (0-15) 11/13/21 17:34 Troponin T 120 Minute 19.16 ng/L (0-15) H 11/13/21 19:59 Delta Troponin T 12.16 ABS# (0-10) H* 11/13/21 19:59 Troponin T Hi Sens 6Hr 32.11 ng/L (0-15) H 11/13/21 23:30 Troponin T Hi Sens 6Hr Delta 25.11 ng/L (0-12) H* 11/13/21 23:30 Total Protein 6.1 g/dL (6.6-8.7) L D 11/14/21 04:09 Albumin 3.9 g/dL (3.5-5.2) 11/14/21 04:09 Globulin 2.2 g/dL (1.3-4.6) 11/14/21 04:09 Lipase 47 U/L (13-60) 11/13/21 17:34 TSH 1.60 uIU/mL (0.27-4.20) 11/14/21 04:09 Urine Color Yellow (Yellow) 11/13/21 18:58 Urine Appearance Clear (CLEAR) 11/13/21 18:58 Urine pH 5 (5-7) 11/13/21 18:58 Ur Specific [place] 1.025 (1.005-1.030) 11/13/21 18:58 Urine Protein Trace (Negative) 11/13/21 18:58 Urine Glucose (UA) 1+ (Normal) H 11/13/21 18:58 Urine Ketones Negative (Negative) 11/13/21 18:58 Urine Blood 2+ (Negative) H 11/13/21 18:58 Urine Nitrate Negative (Negative) 11/13/21 18:58 Urine Bilirubin Neg (Negative) 11/13/21 18:58 Urine Urobilinogen Norm mg/dL (Negative) 11/13/21 18:58 Ur Leukocyte Esterase Negative (Negative) 11/13/21 18:58 Urine RBC 0-4 /hpf (0-2) H 11/13/21 18:58 Urine WBC 0-4 /hpf (0-5) H 11/13/21 18:58 Ur Squamous Epith Cells Rare /hpf (0-5) 11/13/21 18:58 Amorphous Sediment Not Reportable 11/13/21 18:58 Urine Bacteria Trace /hpf (NONE) 11/13/21 18:58 Coarse Granular Casts 5-10 /lpf H 11/13/21 18:58 Urine Mucus Trace /hpf 11/13/21 18:58 CSF Appearance Clear (CLEAR) 11/13/21 22:30 CSF Color Colorless (COLORLESS) 11/13/21 22:30 CSF Specific [place] 1.015 11/13/21 22:30 CSF WBC 1 /uL (0-5) 11/13/21 22:30 CSF RBC 0 10^3/uL (0-0) 11/13/21 22:30 CSF Mononuclear # Auto 0.001 10^3/uL (50-90) L 11/13/21 22:30 CSF Mononuclear WBCs % 100 % (50-90) H 11/13/21 22:30 CSF Polynuclear WBCs # 0.000 10^3/uL (0-10) 11/13/21 22:30 CSF Polynuclear WBCs % 0 % (0-10) 11/13/21 22:30 CSF Diff Comment Yes 11/13/21 22:30 CSF Glucose 87 mg/dL (40-70) H 11/13/21 22:30 CSF Lactate 2.7 mmol/L 11/13/21 22:30 CSF Total Protein 0 mg/dL (15-45) L 11/13/21 22:30 Salicylates < 0.3 mg/dL (3-10) L 11/13/21 17:34 Urine Opiates Screen Negative ng/mL (Negative) 11/13/21 18:58 Acetaminophen < 5.0 ug/mL (10-30) L 11/13/21 17:34 Ur Barbiturates Screen Negative ng/mL (Negative) 11/13/21 18:58 Ur Phencyclidine Scrn Negative ng/mL (Negative) 11/13/21 18:58 Ur Amphetamines Screen Negative ng/mL (Negative) 11/13/21 18:58 U Benzodiazepines Scrn Negative ng/mL (Negative) 11/13/21 18:58 Urine Cocaine Screen Negative ng/mL (Negative) 11/13/21 18:58 U Marijuana (THC) Screen Negative ng/mL (Negative) 11/13/21 18:58 Coronavirus 229E (PCR) Not detected (NOT DETECT) 11/14/21 00:52 SARS-CoV-2 (PCR) Not detected (NOT DETECT) 11/14/21 00:52 SARS-CoV-2 Ag (Rapid) Negative (Negative) 11/14/21 04:25 Misc Test Reference Cancelled 11/13/21 22:30 Discharge Plan Discharge Patient Disposition: Transfer to ED Clinical Impression: Grand mal status, epileptic, Acidosis Condition: Stable Prescriptions: No Action cholecalciferol (vitamin D3) 25 mcg (1,000 unit) capsule 25 mcg PO DAILY 0RF thiamine HCl (vitamin B1) 100 mg tablet 100 mg PO DAILY 0RF omega-3 fatty acids 1,000 mg capsule 1,000 mg PO DAILY 0RF nitroglycerin [Nitrostat] 0.4 mg tablet, sublingual 0.4 mg SUBLINGUAL Q5M PRN (Reason: chest pain) Qty: 25 6RF pantoprazole [Protonix] 40 mg tablet,delayed release (DR/EC) 40 mg PO DAILY 90 Days Qty: 90 1RF meloxicam 15 mg tablet 15 mg PO DAILY Qty: 30 5RF metoprolol tartrate 25 mg tablet 25 mg PO DAILY 30 Days Qty: 90 1RF simvastatin 20 mg tablet See Rx Instructions .ROUTE .COMPLEX Qty: 90 1RF Dose Instruction: TAKE ONE TABLET BY MOUTH EVERY DAY AT BEDTIME Rx Instructions: TAKE ONE TABLET BY MOUTH EVERY DAY AT BEDTIME gabapentin 800 mg tablet See Rx Instructions .ROUTE .COMPLEX Qty: 105 5RF Dose Instruction: TAKE 1 TABLET BY MOUTH EVERY MORNING AND AT NOON. TAKE 1 & 1/2 TABLETS AT NIGHT Rx Instructions: TAKE 1 TABLET BY MOUTH EVERY MORNING AND AT NOON. TAKE 1 & 1/2 TABLETS AT NIGHT trazodone 150 mg tablet See Rx Instructions .ROUTE .COMPLEX Qty: 90 0RF Dose Instruction: TAKE ONE TABLET BY MOUTH EVERY DAY NEEDED FOR INSOMNIA Rx Instructions: TAKE ONE TABLET BY MOUTH EVERY DAY NEEDED FOR INSOMNIA amlodipine 5 mg tablet 5 mg PO DAILY 30 Days Qty: 30 5RF Referrals: Lise Domínguez DO [Primary Care Provider] - Sign Out Sign Out Data: Patient Sign Out occurred on 11/14/21 at 06:27. Patient's care was discussed, and care was transferred from to Jose Morocho DO. Coding Level of Care Code ED Gerontological Nurse Practitioner for Chg Fwd Exam Detailed
[2021-11-13 18:30] LABS: Acetaminophen < 5.0 ug/mL (10-30); Anion Gap 30.3 (5-19); Potassium 4.3 mmol/L (3.5-5.1); Salicylate < 0.3 mg/dL (3-10)
[2021-11-13] MEDS: midazolam 1 mg/mL INJ 2 mL 10 MG IVP (18:52)
[2021-11-13] MEDS: sodium chloride 0.9% 1,000 ML 999 ML IV (18:54)
[2021-11-13] MEDS: propofol 1,000 MG/100 ML INJ 7.08 MG IV (18:55)
[2021-11-13] MEDS: naloxone 0.4 mg/ml SDV (18:56)
[2021-11-13 19:19] LABS: Amphetamines Screen Urine Negative (Negative); Barbiturates Screen Urine Negative (Negative); Benzodiazepines Screen Urine Negative (Negative); Cocaine Screen Urine Negative (Negative); Opiate Screen Urine Negative (Negative); PCP Screen Urine Negative (Negative); THC Screen Urine Negative (Negative)
[2021-11-13 19:21] LABS: ABG PCO2 45.5 mmHg (35-45); ABG PH Result 7.33 (7.35-7.45); Base Excess ABG -2.3 mmol/L (-2.0-2.0); Blood Gas Allen Test Pos; Blood Gas Sample Site Radial, right; Blood Gas Sample Type Arterial; Blood Gas Tidal Volume 0.45; Oxygen Device VENT
--- NOTE | 2021-11-13 19:23 | ECG_ITS ---
[facility] Test Date: 2021-11-13 Pat Name: Daniel Quinteros Department: Room: Gender: Male Hand Paster: : 1955 Requested By: Dejon Looney Order Number: [id number] Curly MD: Juanito Suarez M.D. Measurements Intervals [place] Rate: 92 P: -12 CA: 158 QRS: -26 QRSD: 101 T: 48 QT: 325 QTc: 402 Interpretive Statements SINUS RHYTHM POSSIBLE RIGHT VENTRICULAR CONDUCTION DELAY [RSR (QR) IN V1/V2] Compared to ECG 11/13/2021 18:15:14 Atrial flutter no longer present Left anterior fascicular block no longer present Electronically Signed On 11-13-2021 21:28:06 DEBT COLLECTOR by Juanito Suarez M.D. [id number]
--- NOTE | 2021-11-13 19:23 | PC.NURSE ---
Pt arrived at [address] [facility]. Pt had syncopal episode and hit the back of his head. Upon arrival pt was seizing. Pt continued to have difficulty breathing. Pt was intubated at 1752 with 22 at the lip. Pt was intubated with 30mg of etomidate at 1750 and 40mg of vecuronum at 1751. Staff present: Johann RN, Malvin RN, Pinky RN, Marlene RN, Musa RT, Tracy RT, Dr Looney.
[2021-11-13 19:26] LABS: Specific Gravity, Urine 1.025 (1.005-1.030); Urine Appearance Clear (CLEAR); Urine Color Yellow (Yellow); pH Urine 5 (5-7)
[2021-11-13 19:27] LABS: Bilirubin Urine Neg (Negative); Blood Urine 2+ (Negative); Glucose Urine UA 1+ (Normal); Ketones Urine Negative (Negative); Nitrate Urine Negative (Negative); Protein Urine Trace (Negative); Urobilinogen Urine Norm (Negative)
[2021-11-13 19:28] LABS: Add Urine Culture? No; Add Urine Microscopic? YES; Bacteria Urine TRACE /hpf; Leukocyte Esterase Urine Negative (Negative); Mucus Urine TRACE /hpf; RBC Urine 0-4 /hpf (0-2); Squamous Epithelial Cell Urine RARE /hpf (0-5); WBC Urine 0-4 /hpf (0-5)
[2021-11-13 20:43] LABS: Troponin 5 2HR 19.16 ng/L (0-15)
[2021-11-13 20:47] LABS: Troponin 5 2HR Delta 12.16 ABS# (0-10)
[2021-11-13] MEDS: labetalol 5 mg/mL SDV 20mL 20 MG IVP (21:12)
[2021-11-13 23:44] LABS: Appearance CSF CLEAR (CLEAR); CSF Mononuclear # 0.001 10^3/uL (50-90); Color CSF COLORLESS (COLORLESS); Mononuclear WBC CSF % 100 % (50-90); Polynuclear WBC CSF % 0 % (0-10); Red Blood Cell CSF 0 10^3/uL (0-0); White Blood Cell CSF 1 /uL (0-5)
[2021-11-13 23:45] LABS: Pathology Referral Yes
[2021-11-13 23:50] LABS: CSF Specific Gravity 1.015
[2021-11-13 23:59] LABS: Glucose CSF 87 mg/dL (40-70); Lactate CSF 2.7 mmol/L; Total Protein CSF 0 mg/dL (15-45)
[2021-11-13 23:59] LABS: Troponin 5 6HR 32.11 ng/L (0-15)
[2021-11-14] VITALS (33 sets, daily range): BP systolic 91–125; BP diastolic 58–77; PULSE 64–81; RESP 14–16; TEMP 38.3; O2SAT 96–100
[2021-11-14] LABS: Troponin 5 6HR Delta 25.11 ng/L (0-12)
--- NOTE | 2021-11-14 | USCV_ITS ---
Transthoracic Echo Daniel Quinteros Age: 65 Gender: M : 1955 Exam Date: 11/14/2021 03:59 Ordering Phys: Marck Kenney MD Technologist: AKI [place] [facility] [place]: Elevated Troponin BP: 110 / 66 HR: 68 Rhythm: Sinus Technical Quality: Suboptimal MEASUREMENTS (Male / Female) Normal Values 2D ECHO LV Diastolic Diameter PLAX 2.4 cm 4.2 - 5.9 / 3.9 - 5.3 cm LV Systolic Diameter PLAX 1.9 cm IVS Diastolic Thickness 1.1 cm 0.6 - 1.0 / 0.6 - 0.9 cm IVS Systolic Thickness 1.3 cm LVPW Diastolic Thickness 1.1 cm 0.6 - 1.0 / 0.6 - 0.9 cm LVPW Systolic Thickness 1.4 cm LVOT Diameter 2.2 cm LV Ejection Fraction 2D Teich 20.0 % LA Diameter 3.5 cm LA Width 3.2 cm LA Height 3.5 cm RA Width 3.2 cm RA Height 4.0 cm Aorta at Sinotubular Diameter 2.0 cm M-MODE Aortic Annulus Diameter 3.4 cm LA Ao Ratio MM 1.2 DOPPLER AV Peak Velocity 77.0 cm/s LVOT Peak Velocity 58.0 cm/s AV Area Cont Eq vti 4.3 cm squared AV Area Cont Eq pk 2.8 cm squared MV Peak Velocity 52.0 cm/s MV Area PHT 2.1 cm squared Mitral E to A Ratio 0.9 MV E' Velocity 24.0 cm/s Mitral E to MV E' Ratio 6.9 Mitral E to LV E' Lateral Ratio 6.9 Mitral E to LV E' Septal Ratio 6.9 TR Peak Velocity 223.4 cm/s TR Peak Gradient 20.0 mmHg TR Mean Velocity 153.8 cm/s TR Mean Gradient 10.7 mmHg TR Velocity Time Integral 63.2 cm TV Peak E Velocity 56.0 cm/s Right Atrial Pressure 13.0 mmHg Pulmonary Artery Systolic Pressu 33.0 mmHg PV Peak Velocity 98.0 cm/s RV Acceleration Time 0.1 s RV Ejection Time 0.3 s RV AcT/ET 0.5 FINDINGS Left Ventricle Normal left ventricle size and systolic function. Left ventricular ejection fraction is estimated at 60 %. No diagnostic regional wall motion abnormality based on this study. Right Ventricle Normal right ventricular size and systolic function. Right ventricular systolic pressure 33 mmHg. Right Atrium Right atrium not well visualized. Probably normal right atrial size. Left Atrium Left atrium not well visualized. Probably normal left atrial size. Mitral Valve Mitral valve not well visualized. Aortic Valve Aortic valve not well visualized. No aortic valve stenosis. Tricuspid Valve Tricuspid valve not well visualized. Trace tricuspid valve regurgitation. Pulmonic Valve No pulmonary valve stenosis. Pericardium Echo free space anterior to the right ventricle likely represents a fat pad. Aorta Aorta not well visualized. CONCLUSIONS 1. This is a technically difficult study. 2. Normal left ventricle size and systolic function. Left ventricular ejection fraction is estimated at 60 %. No diagnostic regional wall motion abnormality based on this study. 3. Direct comparison to previous echocardiogram report dated 08/16/2020 is not possible due to difficult study. Shonna Huggins MD (Electronically Signed) Final Date: 14 November 2021 15:13 S
[2021-11-14] MEDS: cefTRIAXone 2,000 MG in sodium chloride 0.9% (plus) 50 ML 100 MG IV (00:12)
[2021-11-14] MEDS: acyclovir 1,000 MG in sodium chloride 0.9% (100 ml) 100 ML 120 MG IV ×2 (00:12→08:22)
[2021-11-14] MEDS: lactated ringers 1,000 ML 999 ML IV (01:08)
[2021-11-14] MEDS: acetaminophen 650 mg Supp PR (01:08)
--- NOTE | 2021-11-14 03:25 | PM.CONSULT ---
Providers/Reason For Consult Consulting Physician/Specialty*: Marck Alvarenga, hospitalist Reason for Consult*: Medical management Requesting Physician: Dr. Looney Primary Care Provider: Lise Domínguez DO History of Present Illness History of Present Illness Daniel Quinteros is a 65 year old male that was brought in from incarceration. From my understanding he felt dizzy, fell back and struck his head and had seizure like activity. He was then brought into the emergency department where he was somnolent, confused, and had a witnessed episode in the emergency department of another seizure. He was intubated and sedated following this secondary to his altered mental status and difficulty breathing I can get no further history from the patient. The emergency department physician apparently was able to get a prior history of brain abscess, for which she has had surgery. In the emergency department besides being intubated he received IV Keppra, acyclovir, Rocephin, vancomycin. Initial pH was 6.99. Additional history has now been obtained from his . In detention only since early AM 11/13/21. Does not drink anything other than alcohol, and drinks heavily at times. Brain abscess treated by [facility] 2 years ago. Review of Systems General: Reports: ROS unobtainable due to endotracheal tube (Sedated on ventilator) Medications/Allergies Home Medications Medication Instructions Recorded Confirmed Last Taken Type cholecalciferol (vitamin D3) 25 25 mcg PO DAILY 04/12/20 08/17/21 06/09/21 History mcg (1,000 unit) capsule omega-3 fatty acids 1,000 mg 1,000 mg PO DAILY 04/12/20 08/17/21 06/09/21 History capsule thiamine HCl (vitamin B1) 100 mg 100 mg PO DAILY 04/12/20 08/17/21 06/09/21 History tablet nitroglycerin 0.4 mg sublingual 0.4 mg SUBLINGUAL Q5M PRN #25 tab 06/13/21 08/17/21 Unknown Rx tablet (Nitrostat) pantoprazole 40 mg tablet,delayed 40 mg PO DAILY 90 Days #90 tab 06/19/21 08/17/21 Unknown Rx release (Protonix) meloxicam 15 mg tablet 15 mg PO DAILY #30 tab 08/28/21 Unknown Rx metoprolol tartrate 25 mg tablet 25 mg PO DAILY 30 Days #90 tab 08/28/21 Unknown Rx simvastatin 20 mg tablet See Rx Instructions .ROUTE 09/04/21 Unknown Rx .COMPLEX #90 tablet gabapentin 800 mg tablet See Rx Instructions .ROUTE 09/25/21 Unknown Rx .COMPLEX #105 tab trazodone 150 mg tablet See Rx Instructions .ROUTE 09/25/21 Unknown Rx .COMPLEX #90 tablet amlodipine 5 mg tablet 5 mg PO DAILY 30 Days #30 tab 10/02/21 Unknown Rx Allergies Allergy/AdvReac Type Severity Reaction Status Date / Time hydrocodone AdvReac Mild RASH Verified 08/17/21 08:40 oxycodone [From Percocet] AdvReac Mild unknown Verified 08/17/21 08:40 Current Medications Generic Name Dose Route Start Last Admin Trade Name Freq PRN Reason Stop Dose Admin Propofol 1,000 mg in 100 mls @ 0 mls/hr 11/13/21 18:00 11/14/21 01:09 Diprivan IV 20 mcg/kg/min .Q0M NILES 14.15 mls/hr Titration Protocol Per Protocol Midazolam HCl 100 mg/ Sodium 100 mls @ 0 mls/hr 11/13/21 18:00 11/13/21 18:54 Chloride IV 4 mg/hr .Q0M NILES 4 mls/hr Administration Protocol Per Protocol Fentanyl 2,500 mcg/ Sodium 250 mls @ 0 mls/hr 11/13/21 19:45 11/14/21 00:24 Chloride IV 100 mcg/hr .Q0M NILES 10 mls/hr Titration Protocol Per Protocol PFSH Acute PFSH: Medical History Benign essential HTN Coronary artery disease involving mechoopda coronary artery Dyslipidemia Paroxysmal tachycardia PVD (peripheral vascular disease) Surgical History History of back surgery History of facial fracture repair History of hand surgery History of left hip replacement Presence of stent in LAD coronary artery 02/04/2014 S/P right coronary artery (RCA) stent placement 02/04/2014 S/P triple vessel bypass Status post aorto-coronary artery bypass graft Family History Other CAD (coronary artery disease) Lung disease Social History Smoking and tobacco status: current every day smoker smokeless tobacco Alcohol intake: never Vitals/I&O/Wt Last Vital Signs Temp 100.9 F H 11/14/21 00:00 Pulse 79 11/14/21 01:00 Resp 19 H 11/13/21 19:23 BP 125/77 11/14/21 01:00 Pulse Ox 100 11/14/21 01:00 11/13/21 11/13/21 11/14/21 14:59 22:59 06:59 Intake Total 1.217 / 1.217 1349.745 / 1350.962 Balance 1.217 / 1.217 1349.745 / 1350.962 Weight last 48 hrs Weight 117.934 kg Physical Exam Narrative: General exam is a sedated male on the ventilator. Temperature 100.9 HEENT: Endotracheal tube, orogastric tube noted Neck is supple no lymphadenopathy or thyromegaly Cardiovascular regular rate and rhythm without murmur, no S3 or S4 Lungs are clear no wheezing or crackles Abdomen is soft, positive bowel sounds, no obvious organomegaly demonstrates Vyas Extremities no cyanosis clubbing or edema, cap refill brisk Skin no rash Neuro: Sedated and intubated Urinary Catheter Management: Vyas: Cath Placed During This Visit: yes Urinary Catheter Date of Insertion: 11/13/21 Urinary Catheter Time of Insertion: 18:49 Data : 11/13/21 17:34 11/13/21 17:34 Other Labs: I have ordered blood cultures to be done. Initial ABG with a pH of 6.99 and elevated CO2. Repeat ABG demonstrates pH 7.33, PCO2 45, PO2 of 410 which was done on 100% FiO2 Anion gap 30 initially Glucose 165 Initial troponin VII with repeat of 20 and 6-hour of 32 Lipase 47 Urinalysis with ketones negative CSF with 1 white and 0 reds Salicylate and acetaminophen level undetectable and urine drug screen negative Initial EKG showed a supra ventricular rhythm at 152, possible sinus tach with LAFB. Chest x-ray no infiltrate A&P Assessment and plan (1) Seizure: From history has had at least 2 seizures within a short period of time, possibly initiated with a hit on the head although he has been drinking heavily and does have past history of brain abscess for which he had surgery on 2 years ago. Keppra was given appropriately by the emergency department Significant acidosis was present, metabolic and respiratory on admission. Lactic acid was not done. CT head no acute findings. Previous left occipital craniotomy, encephalomalacia elation noted. CT cervical spine no fracture. At this point it is appropriate to continue to seek transfer for continuous EEG monitoring in this patient with 2 seizures within a short period of time now on sedation on the ventilator. Lumbar puncture was obtained. CSF count not impressive. Protein is 0, unusual and could indicate CSF leak. If this is present it is old. Continue Keppra Status: Acute (2) Acidosis: See notations above Metabolic and respiratory acidosis Repeat ABG and CMP currently to see if this is corrected At this point it is not likely useful to check a lactate. Status: Acute (3) Fever: Fever noted after arrival Ordered blood cultures Continue Rocephin, acyclovir, vancomycin Urinalysis was checked and not impressive. Check Covid PCR. Await cultures Status: Acute (4) Coronary artery disease involving mechoopda coronary artery: Positive troponin, in this patient with history of coronary disease and previous bypass. This is likely a type II elevation, even no significant delta considering the scenario which he presented Check echocardiogram Aspirin, beta-emelina, statin Had direct closed head trauma with seizure so will avoid full dose anticoagulation currently. Status: Acute Qualifiers: [place] vs. transplanted heart: mechoopda heart Associated angina: without angina Qualified Code(s): I25.10 - Atherosclerotic heart disease of mechoopda coronary artery without angina pectoris (5) GERD (gastroesophageal reflux disease): Protonix IV Status: Acute Plan Respiratory failure. He is currently on the ventilator on minimal settings. History of significant alcohol intake per old records. Initiate thiamine. Currently on a Versed drip which hopefully will prevent withdrawal symptoms. Folate. Multiple other medical problems as outlined in past medical history Full code Lovenox will suffice for DVT prophylaxis. Consult Attestations Medical Necessity Statement: Will need greater than 2 midnight stay for respiratory failure, seizure, fever in this intubated patient who we are attempting to transfer. Critical Care Time: The high probability of a clinically significant, sudden or life threatening deterioration of the patient's [neurologic, infectious disease, metabolic system(s) required my full and direct attention, intervention and personal management. The critical care time is as shown. This time is in addition to time spent performing any reported procedures but includes the following: [x] Data and vital sign review and interpretation [x] Patient assessment, examination and intervention [x] Documentation [x] Medication orders and management Critical Care Time (min): 65 Coding Level of Care Code Acute Legal Services Manager for Chg Fwd Diagnoses Seizure R56.9 Acidosis E87.2 Fever R50.9 Coronary artery disease involving mechoopda coronary artery I25.10 [place] vs. transplanted heart: mechoopda heart Associated angina: without angina GERD (gastroesophageal reflux disease) K21.9
--- NOTE | 2021-11-14 04:26 | PC.PHAR ---
Vancomycin is dosed at 1500mg IVPB every 8 hours to produce a predicted trough level of 17.21 (population based pharmacokinetic analysis). A trough level has been ordered from the lab to be obtained before the fourth dose to confirm and adjust if needed.
[2021-11-14 04:43] LABS: Alanine Aminotransferase 23 U/L (0-41); Albumin Level 3.9 g/dL (3.5-5.2); Alkaline Phosphatase 64 IU/L (40-130); Anion Gap 15.4 (5-19); Aspartate Amino Transferase 21 U/L (0-40); Blood Urea Nitrogen 11 mg/dL (8-23); Carbon Dioxide 24 mmol/L (22-29); Chloride 107 mmol/L (98-107); Globulin 2.2 g/dL (1.3-4.6); Glomerular Filtration Rate 67.6 mL/min (90-130); Glucose 98 mg/dL (65-115); Osmolality Calculated 295 mOsm/kg (285-295); Potassium 3.4 mmol/L (3.5-5.1); Sodium 143 mmol/L (136-145); Total Bilirubin 0.3 mg/dL (0.15-1.2); Total Protein 6.1 g/dL (6.6-8.7)
[2021-11-14 04:48] LABS: SARS Covid-2 Antigen Negative (Negative)
[2021-11-14 04:48] LABS: Basophils % 0.5 %; Eosinophils % 0.5 %; Hematocrit 40.6 % (42.0-52.0); Hemoglobin 14.3 g/dL (11.7-16.6); Lymphocytes % 25.3 %; Mean Corpuscular HGB Conc 35.2 g/dL (30.0-36.0); Mean Corpuscular Hemoglobin 32.6 pg (28.0-34.0); Mean Corpuscular Volume 92.7 fl (80-94); Mean Platelet Volume 9.2 fL (7.4-10.4); Monocytes % 12.4 %; Neutrophils # 4.86 10^3/uL (1.8-7.7); Nucleated Red Blood Cells % 0 %; Platelet Count 151 10^3/cmm (130-400); Red Blood Count 4.38 10^6/uL (4.1-5.3); Red Cell Distribution Width 12.5 % (12.1-15.1)
[2021-11-14] MEDS: pantoprazole 40 mg SDV IVP (05:11)
[2021-11-14] MEDS: enoxaparin 40 mg/0.4 mL Syringe SUBCUT (05:11)
[2021-11-14] MEDS: sodium chloride 0.9% 1,000 ML 75 ML IV (05:15)
[2021-11-14 05:27] LABS: ABG PCO2 40.9 mmHg (35-45); ABG PH Result 7.41 (7.35-7.45); Arterial Blood Gas Hematocrit 44.9 % (42-52); Base Excess ABG 0.9 mmol/L (-2.0-2.0); Blood Gas Sample Site Brachial, right; Blood Gas Sample Type Arterial; HCO3 ABG 25.7 mmol/L (22-26); Oxygen Device VENT
[2021-11-14 05:28] LABS: Blood Gas Tidal Volume 0.45
[2021-11-14] MEDS: levETIRAcetam 750 MG in sodium chloride 0.9% (100 ml) 100 ML 430 MG IV (05:30)
[2021-11-14 05:33] LABS: Adenovirus Not Detected (NOT DETECT); Chlamydia Pneumoniae Not Detected (NOT DETECT); Coronavirus 229E,HKU1,NL63,OC4 Not Detected (NOT DETECT); Human Metapneumovirus Not Detected (NOT DETECT); Human Rhinovirus/Enterovirus Not Detected (NOT DETECT); Influenza A Not Detected (NOT DETECT); Influenza A H1 Not Detected (NOT DETECT); Influenza A H1-2009 Not Detected (NOT DETECT); Influenza A H3 Not Detected (NOT DETECT); Influenza B Not Detected (NOT DETECT); Mycoplasma Pneumoniae Not Detected (NOT DETECT); Parainfluenza Virus Type 1 Not Detected (NOT DETECT); Parainfluenza Virus Type 2 Not Detected (NOT DETECT); Parainfluenza Virus Type 3 Not Detected (NOT DETECT); Parainfluenza Virus Type 4 Not Detected (NOT DETECT); Respiratory Syncytial Virus A Not Detected (NOT DETECT); Respiratory Syncytial Virus B Not Detected (NOT DETECT); SARS-COV-2 Not Detected (NOT DETECT)
[2021-11-14] MEDS: cefTRIAXone 1,000 MG in sodium chloride 0.9% (plus) 50 ML 100 MG IV (06:02)
[2021-11-14] MEDS: metoprolol tartrate 25 mg Tablet 12.5 MG OG-TUBE (08:33)
[2021-11-14] MEDS: folic acid 1 mg Tablet OG-TUBE (08:33)
[2021-11-14] MEDS: aspirin 325 mg Tablet PO (08:33)
[2021-11-14] MEDS: atorvastatin 40 mg Tablet 20 MG PO (08:33)
[2021-11-14] MEDS: thiamine 100 mg Tablet PO (08:33)
[2021-11-14] MEDS: vancomycin 1,500 MG/300 ML PIGGYBACK 150 MG IV (08:34)
--- NOTE | 2021-11-14 10:07 | PC.NURSE ---
REPORT TO CLARK MARTIN AT [facility] IN [place], [place], CALLED FOR AN UPDATE- SHE IS ON HER WAY TO SEE PATIENT PRIOR TO TRANSFER
[2021-11-14] MEDS: vecuronium 10 mg SDV 40 MG IVP (10:15)
[2021-11-17 19:22] LABS: Lyme Disease AB (IGG),IBL NO BANDS DETECTED; Lyme Disease AB (IGM), IBL NO BANDS DETECTED
[2021-11-17 21:22] LABS: Adenosine Deaminase CSF 8.1 U/L (<7.0)
[2021-11-17 22:58] LABS: VDRL on CSF NON-REACTIVE
[2021-11-19 13:03] LABS: HSV 1 DNA NOT DETECTED; HSV 2 DNA NOT DETECTED; HSV Source CEREBROSPINAL FLUID
[2021-11-20 17:38] LABS: St. Louis Enceph.Virus IGG CSF <1:1; St. Louis Enceph.Virus IGM CSF <1:1
[2021-11-24 17:02] LABS: Oligoclonal Bands IGG, CSF PRESENT (ABSENT)
== END 2021-11-14 11:08 ==
PROVIDERS: Emergency Medicine; Internal Medicine; Emergency Provider Family Medicine; PCP Family Medicine
DX: G40.401 Other generalized epilepsy and epileptic syndromes, not intractable, with status epilepticus (principal); E87.2 Acidosis; I10 Essential (primary) hypertension; I25.10 Atherosclerotic heart disease of native coronary artery without angina pectoris; E78.5 Hyperlipidemia, unspecified; Z95.1 Presence of aortocoronary bypass graft; F17.210 Nicotine dependence, cigarettes, uncomplicated; Z20.822 Contact with and (suspected) exposure to COVID-19
CPT/HCPCS: 31500; 36415; 36416; 36556; 36600; 51702; 62270; 70450; 71045; 72125; 80051; 80053; 80306; 80307; 80500; 81001; 82330; 82784; 82803; 82805; 82945; 82962; 83605; 83690; 83916; 84157; 84311; 84315; 84443; 84484; 85025; 86335; 86592; 86617; 86653; 87040; 87070; 87075; 87205; 87327; 87426; 87530; 87635; 89050; 93005; 93306; 94002; 94799; 96365; 96366; 96367; 96368; 96372; 96375; 99291; 99292; C1751; C9113; J0133; J0696; J1650; J1953; J2250; J2310; J2704; J3010; J3370; J3411; J3490; J7030; J7050

== ENCOUNTER 2023-01-15 18:04 | Emergency (ER) | payer MEDICARE, OTHER, SELFPAY ==
[2023-01-15 18:09] VITALS: BP 175/82; PULSE 65; RESP 16; TEMP 36.5; O2SAT 98
[2023-01-15 18:42] LABS: Basophils % 0.8 %; Eosinophils # 0.1 10^3/uL (0.0-0.8); Eosinophils % 2.5 %; Hematocrit 46.1 % (42.0-52.0); Hemoglobin 16.1 g/dL (11.7-16.6); Lymphocytes # 1.7 10^3/uL (0.8-4.8); Lymphocytes % 34.7 %; Mean Corpuscular HGB Conc 34.9 g/dL (30.0-36.0); Mean Corpuscular Hemoglobin 33.1 pg (28.0-34.0); Mean Corpuscular Volume 94.9 fl (80-94); Mean Platelet Volume 8.7 fL (7.4-10.4); Monocytes # 0.4 10^3/uL (0.2-0.9); Monocytes % 8.7 %; Neutrophils # 2.57 10^3/uL (1.8-7.7); Neutrophils % 53.1 %; Nucleated Red Blood Cells % 0 %; Platelet Count 144 10^3/cmm (130-400); Red Blood Count 4.86 10^6/uL (4.1-5.3); Red Cell Distribution Width 12.2 % (12.1-15.1); White Blood Count 4.8 10^3/uL (4.0-10.0)
[2023-01-15 19:06] LABS: Alanine Aminotransferase 60 U/L (0-41); Albumin Level 4.9 g/dL (3.5-5.2); Alkaline Phosphatase 68 U/L (40-130); Anion Gap 13.8 (5-19); Aspartate Amino Transferase 50 U/L (0-40); Blood Urea Nitrogen 12 mg/dL (8-23); Calcium 8.9 mg/dL (8.5-10.5); Carbon Dioxide 29 mmol/L (22-29); Chloride 100 mmol/L (98-107); Globulin 2.9 g/dL (1.3-4.6); Glucose 86 mg/dL (65-115); Lipase 57 U/L (13-60); Osmolality Calculated 287 mOsm/kg (285-295); Potassium 3.8 mmol/L (3.5-5.1); Sodium 139 mmol/L (136-145); Total Bilirubin 0.5 mg/dL (0.15-1.2); Total Protein 7.8 g/dL (6.6-8.7)
[2023-01-15 19:13] LABS: INR 0.96 (0.8-1.2)
--- NOTE | 2023-01-18 13:08 | DCPLANNER ---
housing case manager called patient due to no primary care physician - no answer at this time.
== END 2023-01-15 20:02 | disposition left against medical advice (07) ==
LOC: ER 18:18
PROVIDERS: Emergency Medicine; Emergency Provider Family Medicine
DX: Z53.21 Procedure and treatment not carried out due to patient leaving prior to being seen by health care provider (principal)
CPT/HCPCS: 36415; 80053; 83690; 85025; 85610